=== PATIENT | female | born 1955 | race Caucasian/White ===

== ENCOUNTER 2017-01-05 11:18 | Day surgery (SDC) | payer BC, MEDICARE ==
[~2017-01-05 11:18] MED LIST: Buffered Lidocaine 0.9% SYRIN* 5 ML/SYR SYRINGE INTRADERM ONE
[2017-01-05] MEDS ORDERED: Dexamethasone IV* 8 MG in NS 0.9% 50 ML* 50 ML IVPB ONE (11:56)
[2017-01-05] MEDS ORDERED: Midazolam* 1 MG/ML 2 ML VIAL (2 MG) IV ONE (11:57)
[2017-01-05] MEDS ORDERED: Midazolam* 1 MG/ML 5 ML VIAL (5 MG) ONE ×2 (12:01→14:55)
[2017-01-05] MEDS ORDERED: Dexamethasone IV* 4 MG/ML 1 ML (4 MG) ONE (12:02)
[2017-01-05] MEDS ORDERED: fentaNYL* 50 MCG/ML 2 ML VIAL (100 MCG VIAL) ONE (14:55)
[2017-01-05] MEDS ORDERED: Propofol* 10 MG/ML 20 ML BTL IV PUSH ONE (15:25)
[2017-01-05] MEDS ORDERED: Lidocaine 2% PF * 5 ML VIAL ONE (15:25)
[2017-01-05 16:24] VITALS: BP 135/76
--- NOTE | 2017-01-05 19:28 | PRO ---
CC: Dr. Denisse Vieyra * DATE OF PROCEDURE: 01/05/17 [facility] PROCEDURE: Upper endoscopy with biopsies from the distal esophagus. MEDICINES USED: IV propofol administered through Anesthesiology. NARRATIVE: Ms. Montgomery is a 62-year-old woman with multiple medical problems including chronic pain, on narcotics, as well as reflux disease. She has been maintained on Protonix twice a day and had been doing well, although recently has had more reflux symptoms with regurgitation and occasional dysphagia. 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 For these reasons, an upper endoscopy is being carried out. DESCRIPTION OF PROCEDURE: After the procedure was discussed with the patient, risks and benefits were outlined, written consent was obtained, the patient was placed in the left lateral decubitus position and IV propofol was administered per Anesthesiology. A video adult flexible gastroscope was inserted orally and passed easily into the esophagus. The esophagus, stomach, and duodenum to the second to third portion were well visualized. The patient tolerated the procedure well and there were no immediate complications. FINDINGS: The proximal and mid body of the esophagus was normal. The distal esophagus was notable for a subtle projection of columnar appearing epithelium extending up less than a centimeter from the GE junction consistent with short segment Palmer's. Multiple biopsies were obtained. There was no erosion or stricture. The stomach was entered, and upon retroflexion, I do not appreciate a hiatal hernia. The gastric mucosa was normal without any ulceration or inflammatory change. The pylorus was normal and patent. The duodenal bulb was normal and the second to third portion of the duodenum was normal with a normal folding pattern. CONCLUSION: Short segment Palmer's, appearing endoscopically unchanged from previous endoscopy, otherwise normal upper endoscopy. Biopsies obtained as described above. RECOMMENDATIONS: The results were discussed with the patient. Certainly, there is no advanced change seen on today's exam. We may consider a trial of a different PPI just to see if she has a better response to that and I will discuss with her. Other lifestyle issues including weight reduction, not eating close to bedtime, and perhaps using less of narcotics were certainly by stalling gastric motility is contributing to the reflux, these were all recommended to the patient. Thank you very much, Dr. Vieyra, for involving me in the care of this pleasant woman. [id number]/[facility] #: [id number] [facility]
== END 2017-01-05 16:50 | disposition home or self-care (01) ==
LOC: OR 11:18
PROVIDERS: ATTEND Internal Medicine Gastroenterology
DX: K22.70 Barrett's esophagus without dysplasia (principal); K21.9 Gastro-esophageal reflux disease without esophagitis; E11.9 Type 2 diabetes mellitus without complications; I50.9 Heart failure, unspecified
CPT/HCPCS: 88305; J1100; J2250; J2704; J3010

== ENCOUNTER 2018-08-15 11:30 | Emergency (ER) | payer BC, MEDICARE ==
--- OUTSIDE RECORDS SUMMARY | 2018-08-15 12:32 | XMS REPORT | Continuity of Care Document ---
:1955 External Reference #:[id number] Author Name McgrathSarahi cui Care Team Providers Name Role Phone Izabel Rizvi M.D. Primary Care Physician Unavailable Payers Type Date Identification Numbers Payment Provider Subscriber Effective: 2009 Policy Number: [id number] Medicare Susan San PayID: [id number] [address] [place] [address] Effective: 2018 Policy Number: [facility] Susan San [id number] PayID: [id number] [address] [place] [address] Effective: 2012 Policy Number: [id number] [facility] Domenic San PayID: [id number] [address] [address] [place] [address] Advance Directives Type Date Description Status Comment Other Directive 05/02/2018 Health Care Proxy Current and Verified Problems Date Description Provider Status Onset: 02/25/2018 Diastolic heart failure Raphael Hendrix M.D.,FACP Active Onset: 11/14/2013 Benign essential hypertension Brittni Grey M.D. Active Onset: 11/14/2013 Dyspnea Brittni Grey M.D. Active Onset: 11/14/2013 Orthopnea Brittni Grey M.D. Active Onset: 12/17/2013 Mitral valve disorder Brittni Grey M.D. Active Note: mild-mod Onset: 01/27/2016 Obstructive sleep apnea syndrome Maxine Guadalupe MD Active Onset: 01/27/2016 Morbid obesity Maxine Guadalupe MD Active Onset: 03/13/2016 Hypersomnia with sleep apnea Maxine Guadalupe MD Active Onset: 02/25/2018 Adrenal hypofunction Raphael Hendrix, Active Latasha,FACP Onset: 03/21/2018 Thoracic and lumbosacral Raphael Hendrix, Active neuritis Latasha,FACP Onset: 11/14/2013 Congestive heart failure Brittni Grey M.D. 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 Denis. Tobacco Use Start: Unknown Patient has never smoked Smoking Status Reviewed: 07/31/18 Patient has never smoked Exercise Type/Frequency Exercises regularly uses exercise bike 5x week Allergies, Adverse Reactions, Alerts Date Description Reaction Status Severity Comments 10/24/2011 Bee Sting Active 10/24/2011 Diovan Active 10/24/2011 Morphine Active 11/14/2013 Effexor Anaphylaxis Active Severe 01/27/2016 Levofloxacin Active Mild joint pain 02/25/2018 Sulfa Antibiotics Active Moderate eye drops w/sulfa base caused blister Medications Medication Date Status Form Strength Qnty SIG Indications Ordering Provider Duloxetine HCL 07/[address] 20mg 60cap 1 by mouth G89.4 Part s twice a luis Rizvi MD Prazosin HCL 07/02 Active Capsules 1mg 90cap 3 tabs by F43.12 s mouth at Rizvi, bedtime Lidoderm 05/02 Active Patches 5% 1box apply to affected John Hendrix, area for M.DAnn,FACP 12 hours, remove for 12 hours and repeat as needed Clonazepam 05/02 Active Tablets 0.25mg 20tab 1 by mouth Dispers s every day Rizvi, as needed vertigo when away from home Meloxicam 03/21 Active Tablets 7.5mg take 1 tablet by John Hendrix, mouth M.D.,FACP twice daily as needed Lorazepam 03/19 Active Tablets 0.5mg 10tab 1 tablet F41.9 s every 6 D. Simeon, hours as Latasha,FACP needed for anxiety Turmeric Curcumin 03/06 Active Capsules 500mg 90cap take one s capsule/ta Leny blet daily M.D. by mouth B12 Fast Dissolve 03/06 Active Tablets 5000mcg 90tab sublingual G89.4 Dispers s daily Latasha Michele Provigil 03/13 Active Tablets 200mg 60tab 2 tabs by s mouth John Hendrix, every day M.D.,FACP Cpap Active Device 1unit nightly Unknown /0000 s with O2 Multivitamins Active Capsules 30cap 1 by mouth Unknown /0000 s every day Glucosamine Active Capsules 1500Com 1 by mouth Unknown Chondroitin 1500 /0000 every day Complex Medical Marijuana Active for pain Unknown / and sleep rx'd by Dr. Denis Potassium Active Tablets ER 20Meq when Jander, Chloride Bettina ER /0000 taking MD Denisse torsemide Torsemide Active Tablets 5mg once daily Jander, /0000 in the am MD Denisse Magnesium Active Tablets 550mg when Unknown Gluconate /0000 taking torsemide Probiotic Active Capsules 1 by mouth Unknown /0000 every day Bacitracin Zinc Active Ointment 500Unit/G apply Unknown /0000 M twice a day x 10 days to help with nose bleeds prn Flonase Allergy Active Suspension 50mcg/Act spray 1 Unknown Relief /0000 spray in each nostril twice daily prn Mucinex Active Tablets ER 600mg twice a 12HR day as needed Afrin Nasal Danielson Active Solution 0.05% 1 spray twice daily prn Leg Cramp Relief Active Tablets every 4 h prn Antacid Active Chewtabs 500mg prn Zofran Active Tablets 4mg 42tab take 1 by s mouth John Hendrix, twice a M.D.,FACP day as needed for nausea Systane Active Solution 0.4-0.3% apply twice daily as needed for dry eyes Spironolactone Active Tablets 25mg 30tab Take 1 s tablet by John Hendrix, mouth M.D.,FACP daily Lyrica 06/19 Hx Capsules 50mg 60cap 1 by mouth s twice a D. Simeon, - day [facility] 07/31 Oseltamivir 05/02 Hx Capsules 75mg 10cap 1 po bid s DAnn Hendrix, - [facility] 05/07 Macrobid 03/22 Hx Capsules 100mg 14cap 1 by mouth s twice a D. Simeon, - day M.D.,FACP 03/29 Macrobid 03/07 Hx Capsules 100mg 14cap 1 by mouth s twice a D. Simeon, - day [facility] 03/14 Lasix 03/06 Hx Tablets 20mg 1 by mouth every day Lorazepam 01/26 Hx Tablets 0.5mg 45tab 1-2 tabs G47.33 Maxine /2016 s tab by jackelin Guadalupe MD every night as needed Migraine Formula 01/22 Hx Tablets 250-250-6 prn 5mg Clonazepam 01/22 Hx Tablets 0.5mg 30tab 1 by mouth s twice a D. Simeon, - day as M.D.,FACP 07/27 needed for vertigo/an xiety Blanche Leg Cramp 01/22 Hx as directed Systane 01/22 Hx Solution 0.4-0.3% one drop in each eye twice daily plus as needed every 2 hours Tylenol PM Extra 01/22 Hx Tablets 500-25mg 1 tab by Unknown Strength mouth every 6 hours as needed Mucinex D 01/22 Hx Tablets ER 60-600mg 1 tab by 12HR mouth 2x day as needed [place] 04/15 Hx Tablets 5-325mg 30tab 1-2 by s mouth Anup, - every 4 to M.D. 01/22 6 hours as needed Nitroglycerin 11/14 Hx Patches 0.4mg/HR 30uni 1 patch to 786.02 Brittni 24HR ts chest wall [place], - in the M.D. 03/23 evenings, remove after 12 hours. Prednisone 00/ Hx Tablets 6mg 30tab as Unknown /0000 s directed Atenolol Hx Tablets 12.5 30tab 1 po qd Unknown /0000 s - 01/22 Hydromorphone HCL Hx Tablets 1.930 60tab one to two Unknown /0000 s 4 times a day as needed for pain Torsemide Hx Tablets 10mg 30tab 1 po qod Unknown /0000 s - 03/06 Magnesium-Oxide Hx Tablets 750-1000m 30tab 1 po qd Unknown /0000 g s - 10/30 Gabapentin Hx Capsules 400mg 1 tab qhs Unknown /0000 - 10/22 Protonix [address] 40mg patient no Unknown /0000 longer - taking 05/02 medication Provigil 00 Hx Tablets 400mg 1 po qd Unknown /0000 - 03/13 Skelaxin / Hx Tablets 800mg 20tab 1 po bid Unknown /0000 s prn - 01/22 Nasonex Hx Suspension 50mcg/Act 1unit 2 sprays Unknown /0000 s to each - nostril 03/23 once daily Gabapentin Hx Capsules 100mg 2 po qhs Unknown /0000 - 01/22 Magnesium /00 Hx Tablets 500mg 2 po qd Unknown Gluconate /0000 with - Torsemide 02/25 Systane / Hx prn Unknown /0000 - 01/22 Lorazepam 00/ Hx prn Unknown / - 01/22 Tizanidine HCL Hx 2mg prn - 01/22 Clonidine HCL Hx Tablets 1mg 28tab 1po qhs s Hydrochlorothiazi Hx Tablets 25mg 1 by mouth Unknown every day - 01/22 Prednisone Hx Tablets 5mg 1 by mouth every day - 02/25 Hydrocodone-Aceta Hx Tablets 5-325mg Tru, minophen / MD Tee - 02/25 Meloxicam Hx 7.5mg Patient Unknown / will be - taking 03/21 12 days Clonidine HCL Hx Tablets 0.1mg 1 by mouth qid as - needed 07/02 Nortriptyline HCL Hx Capsules 10mg take 2 capsules - by mouth 06/19 at bedtime rx'd by Dr. Denis Gabapentin Hx Capsules 300mg 1 by mouth three - times a 05/[address] Denis Medications Administered in Office Medication Date Status Form Strength Qnty SIG Indications Ordering Provider Genevieve Administered Injection Migue Carrion, 80MG 015 M.D. Immunizations CPT Code Status Date Vaccine Reaction Lot # [id number] Given 05/02/2018 Influenza Virus Vaccine, [id number] Quadrivalent, Split, Preservative Free [id number] Given 05/08/2016 Influenza Virus Vaccine, No reaction noted [id number] Quadrivalent, Split Virus, Im Use Vital Signs Date Vital Result Comment 07/31/2018 1:55pm Height 59 inches 4'11" Weight 220.00 lb Heart Rate 81 /min BP Systolic 130 mmHg BP Diastolic 84 mmHg Body Temperature 97.2 F O2 % BldC Oximetry 95 % BMI (Body Mass Index) 44.4 kg/m2 07/02/2018 3:06pm Height 59 inches 4'11" Heart Rate 78 /min BP Systolic Sitting 136 mmHg BP Diastolic Sitting 90 mmHg Body Temperature 98.8 F O2 % BldC Oximetry 97 % 06/19/2018 9:05am Height 59 inches 4'11" Weight 225.00 lb w/boots Heart Rate 103 /min BP Systolic Sitting 146 mmHg BP Diastolic Sitting 88 mmHg Body Temperature 97.0 F O2 % BldC Oximetry 97 % BMI (Body Mass Index) 45.4 kg/m2 05/02/2018 2:15pm Height 59 inches 4'11" Weight 217.25 lb Heart Rate 84 /min BP Systolic 150 mmHg BP Diastolic 100 mmHg BP Systolic Recheck 118 mmHg BP Diastolic Recheck 75 mmHg Body Temperature 98.4 F O2 % BldC Oximetry 97 % BMI (Body Mass Index) 43.9 kg/m2 03/21/2018 2:26pm Height 59 inches 4'11" Weight 217.00 lb Heart Rate 92 /min BP Systolic Sitting 126 mmHg BP Diastolic Sitting 80 mmHg Body Temperature 98.7 F O2 % BldC Oximetry 92 % BMI (Body Mass Index) 43.8 kg/m2 03/19/2018 11:13am Height 59 inches 4'11" Weight 215.00 lb Heart Rate 80 /min BP Systolic Sitting 116 mmHg BP Diastolic Sitting 86 mmHg Respiratory Rate 14 /min O2 % BldC Oximetry 97 % BMI (Body Mass Index) 43.4 kg/m2 03/06/2018 1:14pm Height 59 inches 4'11" Heart Rate 108 /min BP Systolic Sitting 149 mmHg BP Diastolic Sitting 75 mmHg Respiratory Rate 20 /min Body Temperature 97.7 F Pain Level 7 02/25/2018 2:28pm Height 59 inches 4'11" Weight 220.00 lb Heart Rate 59 /min BP Systolic Sitting 130 mmHg BP Diastolic Sitting 80 mmHg Body Temperature 98.1 F O2 % BldC Oximetry 98 % BMI (Body Mass Index) 44.4 kg/m2 01/02/2018 9:23am Height 59 inches 4'11" Weight 221.38 lb Heart Rate 76 /min BP Systolic Sitting 134 mmHg Lue large cuff BP Diastolic Sitting 82 mmHg Lue large cuff Respiratory Rate 16 /min O2 % BldC Oximetry 93 % BMI (Body Mass Index) 44.7 kg/m2 05/03/2017 9:48am Height 59 inches 4'11" Weight 216.00 lb Heart Rate 76 /min BP Systolic 118 mmHg BP Diastolic 74 mmHg Respiratory Rate 16 /min Body Temperature 97.6 F BMI (Body Mass Index) 43.6 kg/m2 05/08/2016 3:43pm Height 61 inches 5'1" Weight 208.38 lb Heart Rate 72 /min BP Systolic Sitting 130 mmHg BP Diastolic Sitting 60 mmHg Respiratory Rate 14 /min Body Temperature 97.6 F Pain Level 6 BMI (Body Mass Index) 39.4 kg/m2 03/13/2016 8:45am Height 61 inches 5'1" Weight 200.00 lb Heart Rate 65 /min BP Systolic 124 mmHg BP Diastolic 70 mmHg Respiratory Rate 14 /min O2 % BldC Oximetry 92 % BMI (Body Mass Index) 37.8 kg/m2 01/27/2016 10:00am Height 61 inches 5'1" Weight 200.00 lb Heart Rate 70 /min BP Systolic 128 mmHg BP Diastolic 84 mmHg Respiratory Rate 14 /min O2 % BldC Oximetry 93 % BMI (Body Mass Index) 37.8 kg/m2 Neck Circumference in inches 15 06/09/2015 2:55pm Height 61 inches 5'1" Weight 205.00 lb BMI (Body Mass Index) 38.7 kg/m2 04/29/2015 4:16pm Height 61 inches 5'1" Weight 205.00 lb Pain Level 7 BMI (Body Mass Index) 38.7 kg/m2 04/15/2015 3:48pm Height 61 inches 5'1" Weight 205.00 lb Respiratory Rate 18 /min BMI (Body Mass Index) 38.7 kg/m2 12/22/2014 2:33pm Height 61 inches 5'1" Weight 205.00 lb Heart Rate 62 /min BP Systolic 166 mmHg BP Diastolic 87 mmHg BMI (Body Mass Index) 38.7 kg/m2 12/17/2013 8:23am Height 59.5 inches 4'11.50" Weight 211.00 lb Heart Rate 56 /min BP Systolic Sitting 130 mmHg Ra large cuff BP Diastolic Sitting 74 mmHg Ra large cuff BP Systolic Standing 122 mmHg Ra BP Diastolic Standing 72 mmHg Ra Respiratory Rate 18 /min BMI (Body Mass Index) 41.9 kg/m2 11/14/2013 4:31pm Height 59.5 inches 4'11.50" Weight 212.00 lb Heart Rate 64 /min BP Systolic 126 mmHg Ra large cuff BP Diastolic 74 mmHg Ra large cuff BP Systolic Sitting 120 mmHg LA BP Diastolic Sitting 74 mmHg LA BP Systolic Standing 120 mmHg BP Diastolic Standing 72 mmHg Respiratory Rate 16 /min BMI (Body Mass Index) 42.1 kg/m2 10/24/2011 1:22pm Weight 222.00 lb Heart Rate 88 /min BP Systolic Sitting 126 mmHg BP Diastolic Sitting 88 mmHg Results Test Date Facility Test Result H/L Range Note Laboratory test 07/01/2018 [facility] Erythrocyte Sed 24 mm/Hr N 0-[address] [place] [address] [phone] C Reactive Protein 6.95 mg/L N <8.01 Urinalysis Profile 05/02/2018 [facility] Urine Color Yellow [address] [place], [place] [id number] [phone] Urine Appearance Clear Urine Specific [place] 1.010 N 1.010-1.030 Urine pH 5.0 N 5-9 Urine Urobilinogen Negative Negative Urine Ketones Negative Negative Urine Protein Negative Negative Urine Leukocytes Trace Abnormal Negative Urine Blood Negative Negative * * Abnormal Negative 2 Urine Nitrite Negative Negative Urine Bilirubin Negative Negative Urine Glucose Negative Negative Urine White Blood Cell Absent Absent Urine Red Blood Cell Absent Absent Urine Bacteria Absent Absent Urine Squamous Epithelial Cell Present Abnormal Absent Urine Culture And 05/02/2018 [facility] Urine Culture SEE RESULT [address] [place] [address] [phone] Urine Culture And 03/21/2018 [facility] Urine Culture SEE RESULT 4, [address] [place] [address] [phone] Ua Routine 03/21/2018 [facility] Ua Specific 1.015 [place] Ua PH 5 Ua Color dark yellow Ua Appera cloudy Ua WBC ++ Ua Protein trace Ua Glucose normal Ua Ketones neg Ua Bilirubin neg Ua Urobilinogen normal Ua Nitrite pos Ua Occult Blood trace Urinalysis Profile 03/06/2018 [facility] Urine Color Yellow [address] [place] [address] [phone] Urine Appearance Cloudy Urine Specific [place] 1.013 N 1.010-1.030 Urine pH 5.0 N 5-9 Urine Urobilinogen Negative Negative Urine Ketones Negative Negative Urine Protein Negative Negative Urine Leukocytes 3+ Abnormal Negative Urine Blood Negative Negative * * Abnormal Negative 6 Urine Nitrite Positive Abnormal Negative Urine Bilirubin Negative Negative Urine Glucose Negative Negative Urine White Blood Cell 3+(>20/hpf) Abnormal Absent Urine Red Blood Cell 3+(>10/hpf) Abnormal Absent Urine Bacteria 1+ Abnormal Absent Urine Squamous Epithelial Cell Present Abnormal Absent Urine Culture 03/06/2018 [facility] Urine SEE RESULT [address] Culture [place] [address] [phone] Laboratory test 03/06/2018 [facility] Vitamin B1 175 nmol/L 70-[address] ([place] [address] Blood) [phone] Laboratory test 03/06/2018 [facility] Erythrocyte 80 mm/Hr High 0-[address] [place] [address] [phone] Hepatitis Acute 03/06/2018 [facility] Hepatitis B Nonreactive Nonreactive Panel [address] [place] [address] Antigen [phone] Hepatitis B Core IgM Nonreactive Nonreactive Hepatitis C Antibody Nonreactive Nonreactive Hepatitis A AB IgM Nonreactive Nonreactive Laboratory test 03/04/2018 [facility] Methylmalonic 0.17 <= 0.[address] Acid Mma nmol/mL [place], [place] [id number] [phone] Protein 03/04/2018 [facility] Total 6.9 g/dL 6.3 - 7.[address] Protein(Pep) [place] [address] [phone] Albumin 3.4 g/dL 3.4-4.7 Alpha-1 Globulin 0.4 g/dL Abnormal 0.1-0.3 Alpha-2 Globulin 1.2 g/dL Abnormal 0.6-1.0 Beta Globulin 1.1 g/dL 0.7-1.2 Gamma Globulin 0.8 g/dL 0.6-1.6 Albumin/Globulin Ratio 0.98 Impression See Comment 10 Laboratory test 03/04/2018 [facility] TSH (Thyroid 0.70 mcIU/mL N 0.34-5.[address] Stim Horm) [place] [address] [phone] Lyme Disease Serology Negative Negative 11 Lyme Western 03/04/2018 [facility] Lyme Disease Negative Negative Blot [address] [place] [address] [phone] Lyme Disease IgG Bands Present No bands detecte <SEE NOTE> kDa 12 Lyme Disease IgM Ab WB Negative Negative Lyme Disease IgM Bands Present No bands detecte <SEE NOTE> kDa 13 Lyme Disease Interpretation See Comment 14 Vitamin B6 03/04/2018 [facility] Pyridoxal 5-Phosphate 25 g/L 5-[address] [place] [address] [phone] Pyridoxic Acid 8 g/L 3-30 16 Laboratory test 03/04/2018 [facility] Vitamin D 36.0 ng/mL N 20-[address] Total 25(Oh) [place] [address] [phone] Uric Acid 2.7 mg/dL N 2.3-6.6 Basic Metabolic 12/20/2017 [facility] Sodium 136 mmol/L Low 139-145 [address] [place] [address] [phone] Potassium 4.1 mmol/L N 3.5-5.0 Chloride 100 mmol/L Low 101-111 Co2 Carbon Dioxide 28 mmol/L N 22-32 Anion Gap 8 mmol/L N 2-11 Glucose 98 mg/dL N 70-100 Blood Urea Nitrogen 16 mg/dL N 6-24 Creatinine 0.70 mg/dL N 0.51-0.95 BUN/Creatinine Ratio 22.9 High 8-20 Calcium 8.7 mg/dL N 8.6-10.3 Egfr Non- 85.1 >60 Egfr 109.4 >60 18 Laboratory test 12/20/2017 [facility] Magnesium 2.1 mg/dL N 1.9-2.7 [address] [place] [address] [phone] Rheumatoid Factor < 10 IU/mL N <15 20 C Reactive Protein 5.90 mg/L High < 5.00 21 Vitamin B12 1362 pg/mL High 180-914 22 Erythrocyte Sed Rate 31 mm/Hr High 0-30 23 Urine Culture And 12/20/2017 [facility] Urine SEE RESULT [address] [place] [address] [phone] Laboratory test 12/20/2017 [facility] Lyme Disease Negative Negative [address] [place] [address] [phone] Anti Nuclear Antibody 0.2 U 26 Cyclic Citrullinated Pep Igg <15.6 U 27 Laboratory test 04/10/2016 [facility] Erythrocyte Sed 18 mm/Hr N 0-[address] [place] [address] [phone] Lyme Disease Serology Negative N Negative 28 CBC Auto Diff 04/10/2016 [facility] White Blood 3.9 10^3/uL N 3.5-10.[address] [place] [address] [phone] Red Blood Count 3.68 10^6/uL Low 4.0-5.4 Hemoglobin 12.0 g/dL N 12.0-16.0 Hematocrit 36 % N 35-47 Mean Corpuscular Volume 97 fL N 80-97 Mean Corpuscular Hemoglobin 33 pg High 27-31 Mean Corpuscular HGB Conc 34 g/dL N 31-36 Red Cell Distribution Width 13 % N 10.5-15 Platelet Count 267 10^3/uL N 150-450 Mean Platelet Volume 6 um3 Low 7.4-10.4 Abs Neutrophils 2.4 10^3/uL N 1.5-7.7 Abs Lymphocytes 1.0 10^3/uL N 1.0-4.8 Abs Monocytes 0.4 10^3/uL N 0-0.8 Abs Eosinophils 0 10^3/uL N 0-0.6 Abs Basophils 0 10^3/uL N 0-0.2 Abs Nucleated RBC 0 10^3/uL N Granulocyte % 63.0 % N 38-83 Lymphocyte % 25.5 % N 25-47 Monocyte % 9.7 % High 1-9 Eosinophil % 1.0 % N 0-6 Basophil % 0.8 % N 0-2 Nucleated Red Blood Cells % 0 N Laboratory test 04/10/2016 [facility] C Reactive 4.03 mg/L N < 5.00 29 finding 101 [facility] [place] [address] [phone] Ferritin 17.4 ng/mL N 11-307 Iron & Iron Binding 04/10/2016 [facility] Iron 58 g/dL N 50- [address] [place] [address] [phone] Unsaturated Iron Binding 271 g/dL N Total Iron Binding Capacity 329 g/dL N 250-450 % Iron Saturation 18 % N 15-55 Basic Metabolic Panel 04/10/2016 [facility] Sodium 134 mmol/L N 133-145 [address] [place] [address] [phone] Potassium 4.2 mmol/L N 3.5-5.0 Chloride 96 mmol/L Low 101-111 Co2 Carbon Dioxide 31 mmol/L N 22-32 Anion Gap 7 mmol/L N 2-11 Glucose 99 mg/dL N 70-100 Blood Urea Nitrogen 10 mg/dL N 6-24 Creatinine 0.62 mg/dL N 0.51-0.95 BUN/Creatinine Ratio 16.1 N 8-20 Calcium 8.9 mg/dL N 8.6-10.3 Egfr Non- 98.2 N >60 Egfr 126.3 N >60 30 1 [id number] *Ascorbic acid is present which may interfere with detection of blood. 3 SEE RESULT BELOW Name: SUSAN SAN : [address]: Rogelio Hendrix MD Acct: [id number] Unit: [id number] AGE: 63 Location: [facility] Re05/02/18 SEX: F Status: REG REF SPEC: [id number] ELLEN: 05/02/18-[address]: Raphael Hendrix MD REQ: [id number] RECD: 05/02/18 STATUS: COMP _ SOURCE: URINE SPDESC: ORDERED: Urine Culture COMMENTS: [id number] Urine Source: Random Procedure Result Reported Site Urine Culture Final 05/03/18- 1634 ML No growth of clinically significant organisms * ML - Main Lab . END OF REPORT DEPARTMENT OF PATHOLOGY, [address] [place] [address] Tr Gan M.D. Director [facility] # [id number] SEE RESULT BELOW Name: SUSAN SAN : [address]: Rogelio Hendrix MD Acct: [id number] Unit: [id number] AGE: 63 Location: [facility] Re03/21/18 SEX: F Status: REG REF SPEC: [id number] ELLEN: 03/21/18-[address] [facility] [address]: Raphael Hendrix MD REQ: [id number] RECD: 03/21/18 STATUS: COMP _ SOURCE: URINE SPDESC: ORDERED: Urine Culture COMMENTS: [id number] Urine Source: Random Procedure Result Reported Site Urine Culture Final 03/23/18- 0757 ML Organism 1 ESCHERICHIA COLI Stra[place] Count >100,000 (Many) CFU/ML 1. ESCHERICHIA COLI M.I.C. RX --------- ------ Ampicillin >=32 R Cefazolin <=4 S Cefepime <=1 S Ceftriaxone <=1 S Ciprofloxacin <=0.25 S Gentamicin <=1 S Levofloxacin <=0.12 S Meropenem <=0.25 S Nitrofurantoin <=16 S Tetracycline >=16 R Pipercillin/Tazobactam <=4 S Trimethoprim/Sulfamethoxazole <=20 S Amoxicillin/Clavulanic Acid 4 S Aztreonam <=1 S Contact the Microbiology Department for any additional antibiotic reporting. * ML - Main Lab . END OF REPORT DEPARTMENT OF PATHOLOGY, [address] [place] [address] Tr Gan M.D. Director [facility] # [id number] *Ascorbic acid is present which may interfere with detection of blood. 7 SEE RESULT BELOW Name: SUSAN ASN : [address]: Rogelio Hendrix MD Acct: [id number] Unit: [id number] AGE: 63 Location: LAB Re03/06/18 SEX: F Status: REG REF SPEC: [id number] ELLEN: 03/06/18-[address]: Raphael Hendrix MD REQ: [id number] RECD: 03/06/180159 STATUS: COMP _ SOURCE: URINE SPDESC: ORDERED: Urine Culture Procedure Result Reported Site Urine Culture Final 03/08/18- 846 ML Organism 1 ESCHERICHIA COLI [place] Count >100,000 (Many) CFU/ML 1. ESCHERICHIA COLI M.I.C. RX --------- ------ Ampicillin >=32 R Cefazolin <=4 S Cefepime <=1 S Ceftriaxone <=1 S Ciprofloxacin <=0.25 S Gentamicin <=1 S Levofloxacin <=0.12 S Meropenem <=0.25 S Nitrofurantoin <=16 S Tetracycline >=16 R Pipercillin/Tazobactam <=4 S Trimethoprim/Sulfamethoxazole <=20 S Amoxicillin/Clavulanic Acid 8 S Aztreonam <=1 S Contact the Microbiology Department for any additional antibiotic reporting. * ML - Main Lab . END OF REPORT DEPARTMENT OF PATHOLOGY, [address] [place] [address] Tr Gan M.D. Director [facility] # [id number] ADDITIONAL INFORMATION This test was developed and its performance characteristics determined by [facility] in a manner consistent with CLIA requirements. This test has not been cleared or approved by the U.S. Food and Drug Administration. Test Performed by: [facility] [place] [address] 9 ADDITIONAL INFORMATION This test was developed and its performance characteristics determined by [facility] in a manner consistent with CLIA requirements. This test has not been cleared or approved by the U.S. Food and Drug Administration. Test Performed by: [facility] [place] [address] 10 RESULT: No apparent monoclonal protein on serum electrophoresis. Test Performed by: [facility] [place] [address] 11 No evidence of antibodies to B. burgdorferi detected. False negative results may occur in recently infected patients (<=2 weeks) due to low or undetectable antibody levels to B. burgdorferi. If recent exposure is suspected, a second sample should be collected and tested in 2-4 weeks. Test Performed by: [facility] [place] [address] 12 No bands detected 13 No bands detected 14 Specific serologic response to B. burgdorferi infection is not detected, but cannot rule out early infection during which low or undetectable antibody levels to B. burgdorferi may be present. If clinically indicated, a new serum specimen should be submitted in 7-14 days. ADDITIONAL INFORMATION Per CDC criteria, the Lyme IgG Immunoblot is interpreted as positive if IgG-class antibodies are detected to >=5 B. burgdorferi proteins, and the Lyme IgM Immunoblot is interpreted as positive if IgM-class antibodies are detected to >=2 B. burgdorferi proteins. Immunoblot patterns not meeting these criteria should not be interpreted as positive. Epitopes from certain B. burgdorferi proteins (e.g., p41) are conserved across other bacteria, which may lead to the detection of IgM- and/or IgG-class antibodies on the Lyme disease immunoblots in patients without Lyme disease. Immunoblot should only be ordered on specimens that are positive or equivocal by a FDA-licensed Lyme disease antibody screening test (e.g., EIA). Results of the Lyme IgM immunoblot should not be considered in patients with >=30 days of symptoms. Test Performed by: [facility] - [address] [address] 15 ADDITIONAL INFORMATION This test was developed and its performance characteristics determined by [facility] in a manner consistent with CLIA requirements. This test has not been cleared or approved by the U.S. Food and Drug Administration. 16 ADDITIONAL INFORMATION This test was developed and its performance characteristics determined by [facility] in a manner consistent with CLIA requirements. This test has not been cleared or approved by the U.S. Food and Drug Administration. Test Performed by: [facility] - [address] [address] 17 [id number] 18 Because ethnic data is not always readily available, this report includes an eGFR for both -Americans and non- Americans. The National Kidney Disease Education Program (NKDEP) does not endorse the use of the MDRD equation for patients that are not between the ages of 18 and 70, are , have extremes of body size, muscle mass, or nutritional status, or are non- or non-. According to the National Kidney Foundation, irrespective of diagnosis, the stage of the disease is based on the level of kidney function: Stage Description GFR(mL/min/1.73 m(2)) 1 Kidney damage with normal or decreased GFR 90 2 Kidney damage with mild decrease in GFR 60-89 3 Moderate decrease in GFR 30-59 4 Severe decrease in GFR 15-29 5 Kidney failure <15 (or dialysis) 19 [id number] 20 [id number] 21 Acute inflammation: >10.00 22 Normal Range 180 to 914 Indeterminate Range 145 to 180 Deficient Range <145 23 [id number] 24 SEE RESULT BELOW Name: SUSAN SAN : [address]: Denisse Vieyra MD Acct: [id number] Unit: [id number] AGE: 62 Location: [facility] Re12/20/17 SEX: F Status: REG REF SPEC: [id number] ELLEN: 12/20/17-[address] [facility] [address]: Denisse Vieyra MD REQ: [id number] RECD: 12/20/17-160 STATUS: ELPIDIO COOK DR: Jordan Michele MD _ SOURCE: URINE SPDESC: ORDERED: Urine Culture COMMENTS: [id number] QUERIES: Urine Source: Random Procedure Result Reported Site Urine Culture Final 12/22/17- 0812 ML Organism 1 ESCHERICHIA COLI [place] Count >100,000 (Many) CFU/ML 1. ESCHERICHIA COLI M.I.C. RX --------- ------ Ampicillin <=2 S Cefazolin <=4 S Cefepime <=1 S Ceftriaxone <=1 S Ciprofloxacin <=0.25 S Gentamicin <=1 S Levofloxacin <=0.12 S Meropenem <=0.25 S Nitrofurantoin 32 S Tetracycline <=1 S Pipercillin/Tazobactam <=4 S Trimethoprim/Sulfamethoxazole >=320 R Amoxicillin/Clavulanic Acid 4 S Aztreonam <=1 S Contact the Microbiology Department for any additional antibiotic reporting. * ML - Main Lab . END OF REPORT DEPARTMENT OF PATHOLOGY, [address] [place] [address] Tr Gan M.D. Director [facility] # [id number] 25 No evidence of antibodies to B. burgdorferi detected. False negative results may occur in recently infected patients (<=2 weeks) due to low or undetectable antibody levels to B. burgdorferi. If recent exposure is suspected, a second sample should be collected and tested in 2-4 weeks. Test Performed by: [facility] - [facility] [address] [place] [address] 26 REFERENCE VALUE <=1.0 (Negative) Test Performed by: [facility] - [address] [address] 27 REFERENCE VALUE <20.0 (Negative) Test Performed by: [facility] - [address] [address] 28 Serologic response to B. burgdorferi infection is not detected, but cannot rule out early infection during which low or undetectable antibody levels to B. burgdorferi may be present. If clinically indicated, a new serum specimen should be submitted in 7-14 days. Test Performed by: [facility] - [address] [address] Custodial Aide: Garfield Cheney II, M.D., Ph.D. 29 Acute inflammation: >10.00 30 Because ethnic data is not always readily available, this report includes an eGFR for both -Americans and non- Americans. The National Kidney Disease Education Program (NKDEP) does not endorse the use of the MDRD equation for patients that are not between the ages of 18 and 70, are , have extremes of body size, muscle mass, or nutritional status, or are non- or non-. According to the National Kidney Foundation, irrespective of diagnosis, the stage of the disease is based on the level of kidney function: Stage Description GFR(mL/min/1.73 m(2)) 1 Kidney damage with normal or decreased GFR 90 2 Kidney damage with mild decrease in GFR 60-89 3 Moderate decrease in GFR 30-59 4 Severe decrease in GFR 15-29 5 Kidney failure <15 (or dialysis) Procedures Date Code Description Status 07/01/2018 [id number] Diabetic Retinal Eye Exam Completed 10/03/2017 [id number] Mammogram Completed 03/24/2015 00372 Short Leg Cast Completed 12/22/2014 01580 Inject/Drain Joint/Bursa Major W/O US Completed 12/04/2013 88477 ECHO Transthorasic Realtime 2D W Doppler & Color Flow Completed Hosp 11/14/2013 84177 EKG Tracing & Interpretation Completed 07/09/2013 [id number] Colonoscopy Completed 08/07/2012 23429 Polysomnography Sleep Staging 4+ Parameters W/Cpap Completed Encounters Type Date Location Provider Dx Diagnosis Office Visit 07/02/2018 [facility] Internal Izabel Rizvi MD G89.4 Chronic pain 3:00p Medicine - [address] F43.12 Post-traumatic stress disorder, chronic I10 Essential (primary) hypertension Office Visit 06/19/2018 [facility] Internal Raphael Lopez 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 Keyshawn Hendrix M.D.,FACP disorders w [address] radiculopathy, 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 N39.0 Urinary tract infection, site not specified Office Visit 05/02/2018 2:20p [facility] Lelia Lopez G60.8 Other hereditary Keyshawn Hendrix M.D.,FACP and idiopathic [address] neuropathies N39.0 Urinary tract infection, site not specified M51.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, lumbar region I10 Essential (primary) hypertension Z23 Encounter for immunization Office Visit 03/21/2018 2:20p [facility] Internal Raphael Lopez G60.8 Other hereditary Keyshawn Hendrix M.D.,FACP and idiopathic [address] neuropathies M51.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, lumbar region R30.0 Dysuria Office Visit 03/19/2018 11:00a Pulmonology And Maxine G47.33 Obstructive sleep Sleep Services Of MD Anayeli apnea (adult) [facility] (pediatric) E66.01 Morbid (severe) obesity due to excess calories F41.9 Anxiety disorder, unspecified Office Visit 03/06/2018 1:00p Rheumatology Jordan Michele G89.4 Chronic pain Services Of Ludni Pagan syndrome G60.8 Other hereditary and idiopathic neuropathies R20.8 Other disturbances of skin sensation M79.1 Myalgia Office Visit 02/25/2018 2:40p [facility] Lelia Lopez G89.4 Chronic pain Medicine - Talita Hendrix M.D.,FACP syndrome Rd G60.8 Other hereditary and idiopathic neuropathies M06.4 Inflammatory polyarthropathy Office Visit 01/02/2018 9:15a Pulmonology And Maxine G47.33 Obstructive sleep Sleep Services Of MD Anayeli apnea (adult) [facility] (pediatric) E66.09 Other obesity due to excess calories Office Visit 05/03/2017 Surgical Tee Schafer, L76.32 Postproc hematoma of 9:30a [facility] ELIZABETH MANUEL skin, subcu following other procedure Office Visit 05/08/2016 Rheumatology Jordan M06.4 Inflammatory 3:00p Services Of Ludin Michele M.D. polyarthropathy R20.8 Other disturbances of skin sensation R60.0 Localized edema M79.1 Myalgia Z23 Encounter for immunization Office Visit 03/13/2016 8:30a Pulmonology And Maxine G47.33 Obstructive sleep Sleep Services Of MD Anayeli apnea (adult) [facility] (pediatric) E66.01 Morbid (severe) obesity due to excess calories G47.10 Hypersomnia, unspecified Office Visit 01/27/2016 9:30a Pulmonology And Maxine G47.33 Obstructive sleep Sleep [facility] Of MD Anayeli apnea (adult) [facility] (pediatric) E66.01 Morbid (severe) obesity due to excess calories Office Visit 06/09/2015 2:40p [facility] [place] S92.354D Nondisp fx of 5th Services Of Latasha Hebert metatarsal bone, C.M.A. r ft, 7thD Office Visit 04/29/2015 3:50p [facility] [place] S92.354D Nondisp fx of 5th Services Of Latasha Hebert metatarsal bone, C.M.A. r ft, 7thD Office Visit 04/15/2015 3:30p Iris Cheatham M66.871 Spontaneous Services Of Latasha Hebert rupture of other C.M.A. tendons, right ankle and foot Office Visit 03/24/2015 4:10p Iris Cheatham 727.68 Ruptured Tendon Services Of Latasha Hebert Foot & Ankle C.M.A. Other 825.25 FX Other Bones Metatarsal Bone(S) Closed 825.25 FX Other Bones Metatarsal Bone(S) Closed 727.68 Ruptured Tendon Foot & Ankle Other Office Visit 12/22/2014 2:00p Orthopedic Services Migue Carrion, 727.3 Bursitis Other Of C.M.Jeremy Pagan 726.5 Enthesopathy Of Hip Region Office Visit 12/17/2013 8:00a [facility] Brittni Grey, 401.1 Hypertension Of [facility] M.D. Benign 786.05 Shortness Of Breath 786.02 Orthopnea 424.0 Mitral Valve Disorder 428.0 Congestive Heart Failure Unspecified Office Visit 11/14/2013 3:30p [facility] Brittni Grey, 428.0 Congestive Heart Of [facility] M.D. Failure Unspecified 401.1 Hypertension Benign 786.05 Shortness Of Breath 786.02 Orthopnea Office Visit 08/16/2012 Lai Cheatham 327.23 Obstructive Sleep 3:15p Disorder Center Latasha Hoyt Apnea Adult & Pediatric Office Visit 06/21/2012 Lai Cheatham 327.23 Obstructive Sleep 10:59a Disorder Center Latasha Hoyt Apnea Adult & Pediatric Office Visit 10/24/2011 ENT Services Of Denny Escoto, 381.81 Eustachian Tube 1:15p [facility] Visit 05/16/2010 Neurosurgery Nas Weaver 726.5 Enthesopathy Of 3:00p Services Of [facility] Latasha Salguero Hip Region Plan of Treatment Future Appointment(s):08/22/2018 3:00 pm - Alcides Jerome MD at [place] [facility] of [facility]08/29/2018 9:40 am - Izabel Rizvi MD at [facility] Internal Medicine - [address]/19/2018 10:45 am - Maxine Guadalupe MD at Pulmonology And Sleep Services Of [facility]07/31/2018 - Izabel Rizvi MDG89.4 Chronic pain syndromeReferral:Tee Le MD, AnesthesiologyFollow up:4 hljgjD28.12 Post-traumatic stress disorder, igskojtT78 Essential (primary) thtzdtktmklnE52.9 Endocrine disorder, unspecifiedReferral:Alcides Jerome MD, Endocrinology
[2018-08-15 12:35] VITALS: BP 148/89
--- NOTE | 2018-08-15 13:36 | ED ---
Respiratory - HPI Summary HPI Summary: 63-year-old female presents with cough for the past week. She admits to fevers. She has history of congestive heart failure. She admits to weight gain. She states she's had more edema in her legs. She states her cough is productive. She denies any chest pain. She admits to shortness of breath. States she's had to use her oxygen more frequently. She uses her CPAP at night. she denies any abdominal pain. She admits to sore throat from coughing. She admits to sinus congestion that is getting worse. She also admits to a headache. States she has a history of brain cancer. no history of asthma or COPD. - History of Current Complaint Chief Complaint: UCRespiratory Stated Complaint: COUGH,FEVER Time Seen by Provider: 08/15/18 13:25 Pain Intensity: 8 - Allergy/Home Medications Allergies/Adverse Reactions: Allergies Allergy/AdvReac Type Severity Reaction Status Date / Time valsartan [From Diovan] Allergy Severe respiratory Verified 08/15/18 12:36 distress venlafaxine [From Effexor] Allergy Severe respiratory Verified 08/15/18 12:36 distress amlodipine Allergy Coughing Verified 08/15/18 12:36 Gadolinium-Containing Allergy Severe Verified 08/15/18 12:36 Contrast Medi Nausea levofloxacin [From Levaquin] Allergy Muscle Verified 08/15/18 12:36 cramps morphine Allergy severe Verified 08/15/18 12:36 nausea sulfacetamide Allergy blisters Verified 08/15/18 12:36 in her eye bees Allergy Severe Swelling Uncoded 08/15/18 12:36 PMH/Surg Hx/FS Hx/Imm Hx Endocrine/Hematology History: Reports: Hx Diabetes - type1, Hx Thyroid Disease - small nodule on thyroid Cardiovascular History: Reports: Hx Congestive Heart Failure, Hx Hypertension - to maintain pressures. go up and down r/t pain and anxiety, Hx Valvular Heart Disease - small leak in heart Denies: Hx Pacemaker/ICD Respiratory History: Reports: Hx Pulmonary Edema - occassional, Hx Sleep Apnea Denies: Hx Asthma GI History: Reports: Hx Gastroesophageal Reflux Disease, Other GI Disorders - adrenal insufficiency r/t radiation damage History: Reports: Hx Kidney Infection - IN THE PAST- none recently Musculoskeletal History: Reports: Hx Arthritis Denies: Hx Rheumatoid Arthritis, Hx Osteoporosis, Other Musculoskeletal History Sensory History: Reports: Hx Contacts or Glasses - glasses, Hx Hearing Aid - WILL NOT WEAR Opthamlomology History: Reports: Hx Contacts or Glasses - glasses Neurological History: Reports: Hx Headaches, Hx Migraine - FREQUENTLY 2 PER MONTH Denies: Other Neuro Impairments/Disorders - NEURO DAMAGE FROM BRAIN TUMORS Psychiatric History: Reports: Hx Anxiety, Hx Depression Denies: Hx Panic Disorder - Cancer History Cancer Type, Location and Year: MENINGIOMA Hx Chemotherapy: No Hx Radiation Therapy: Yes - BRAIN - Surgical History Surgery Procedure, Year, and Place: 1988 MAXILLO-FACIAL; 1995 FX Rt ANKLE; 2001 HYSTERECTOMY; 2002 CHOLECYSTECTOMY; 2003 CRANIOTOMY; 2004 &2009 INTRATHECAL PAIN PUMP-SYNCHROMED II- (INFO IN "REPORTS" CLEARED FOR MRI TO 3T CLOSED BORE);* *PT GOING TO PAIN CLINIC IN [place] TO HAVE PUMP CHECK POST -MRI . 2012 PELVIC FLOOR SURGERY. 2015 hernia surgery [facility]. 2015 1 tooth implant CRANIOTOMY CLEARED BY DR RAMÍREZ-VIA EXTERNAL MRI DONE 09/03/11. BLADDER 2011, [place]. 2015 2 hernia repairs [facility]. [address] Joe Hx Anesthesia Reactions: Yes - needs to have anesthesia go low and slow Infectious Disease History: No Infectious Disease History: Denies: Traveled Outside the [place] in Last 30 Days - Social History Alcohol Use: Weekly Alcohol Amount: 3-4 drinks/wk Substance Use Type: Reports: None Substance Use Comment - Amount & Last Used: medical marijuana Hx Tobacco Use: No Smoking Status (MU): Never Smoked Tobacco Have You Smoked in the Last Year: No Review of Systems Positive: Fever Positive: Sore Throat, Nasal Discharge Negative: Chest Pain Positive: Shortness Of Breath, Cough All Other Systems Reviewed And Are Negative: Yes Physical Exam Triage Information Reviewed: Yes Vital Signs On Initial Exam: Initial Vitals Temp Pulse Resp BP Pulse Ox 98 F 94 17 148/89 100 08/15/18 12:32 08/15/18 12:32 08/15/18 12:32 08/15/18 12:32 08/15/18 12:32 Vital Signs Reviewed: Yes Appearance: Positive: Well-Appearing Skin: Positive: Warm, Dry Head/Face: Positive: Normal Head/Face Inspection Eyes: Positive: Normal, EOMI, YAJAIRA, Conjunctiva Clear ENT: Positive: Pharyngeal erythema, Nasal congestion, TMs normal, Sinus tenderness. Negative: Tonsillar swelling, Tonsillar exudate Neck: Positive: Supple, Nontender, No Lymphadenopathy Respiratory/Lung Sounds: Positive: Breath Sounds Present, Other - crackles Cardiovascular: Positive: Normal, RRR Abdomen Description: Positive: Nontender, Soft Bowel Sounds: Positive: Present Musculoskeletal: Positive: Edema Left - bilateral, Edema Right - bilateral, Other - good pulses Neurological: Positive: Normal Psychiatric: Positive: Normal Diagnostics - Vital Signs Vital Signs Temp Pulse Resp BP Pulse Ox 08/15/18 12:32 98 F 94 17 148/89 100 - Laboratory Lab Statement: Any lab studies that have been ordered have been reviewed, and results considered in the medical decision making process. Disposition - Course Course Of Treatment: 63-year-old female presents with cough for the past week. She admits to fevers. She has history of congestive heart failure. She admits to weight gain. She states she's had more edema in her legs. She states her cough is productive. She denies any chest pain. She admits to shortness of breath. States she's had to use her oxygen more frequently. She uses her CPAP at night. she denies any abdominal pain. She admits to sore throat from coughing. She admits to sinus congestion that is getting worse. She also admits to a headache. States she has a history of brain cancer. on exam phaynx erythematous. sinus congestion noted. lungs some crackles noted. patient decline chest xray and flu swap. requesting antibiotic. will start on azithromycin. discussed likely having a chf exacerbation in addition but patient declined further work up in ED or chest xray. will have increase torsemide and warned if continues to get worst to go to ED. 02 stat 100 at point so no resp distress at moment. patient understand and agrees with plan. - Differential Dx - Cardiopulmonary Differential Diagnoses - Cardiopulmonary: CHF, Influenza, Lower Resp Infection - Diagnoses Provider Diagnoses: Upper respiratory infection, CHF (congestive heart failure) Discharge - Sign-Out/Discharge Documenting (check all that apply): Patient Departure All imaging exams completed and their final reports reviewed: No Studies - Discharge Plan Condition: Good Disposition: HOME Prescriptions: Azithromycin TAB* [Zithromax TAB (Z-TYLER) 250 mg #6 tabs] 2 tab PO .TODAY, THEN 1 DAILY #1 tyler guaiFENesin/CODIEN 100MG-10MG* [Robitussin AC 100Mg-10Mg*] 5 ml PO Q6H PRN #100 ml MDD 20ml PRN Reason: Cough Patient Education Materials: Upper Respiratory Infection (ED) Referrals: Izabel Rizvi MD [Primary Care Provider] - Additional Instructions: Take cough medication 5ml (1 teaspoon) every 6 hours as needed cough Take azithromycin two tablets first day and one tablet second day Use saline in the nose for nasal congestion add an additional 10mg of torsemide at night Take Tylenol for pain every 6 hours follow up with primary within 5 days Return to ED if develop any worsening shortness of breath, chest pain, or any new or worsening symptoms - Billing Disposition and Condition Condition: GOOD Disposition: Home
== END 2018-08-15 13:43 | disposition home or self-care (01) ==
LOC: UCEAST 11:30
DX: J06.9 Acute upper respiratory infection, unspecified (principal); I50.9 Heart failure, unspecified; Z99.81 Dependence on supplemental oxygen; Z88.5 Allergy status to narcotic agent; Z88.2 Allergy status to sulfonamides; Z88.8 Allergy status to other drugs, medicaments and biological substances; Z88.1 Allergy status to other antibiotic agents; Z91.030 Bee allergy status
CPT/HCPCS: 99212; G0463

== ENCOUNTER 2018-08-29 10:55 | Emergency (ER) | payer BC, MEDICARE ==
[2018-08-29] MEDS ORDERED: methylPREDNISolone 125 MG* 2 ML VIAL IV ONE (11:05)
[2018-08-29] MEDS ORDERED: Albuterol/Ipratropium NEB.SOL* Albuterol 2.5 MG/Ipratropium 0.5 MG 3 ML INH ONE ×2 (11:05→12:49)
--- NOTE | 2018-08-29 11:10 | ED ---
Shortness of Breath - HPI Summary HPI Summary: This patient is a 63 year old female presenting to [facility] after being sent from her PCP for SOB. The patient states she has been SOB for over 10 days and has seen her PCP 3 times in this period. Along with the SOB she has had CP and RUBIO. She rates the pain 8/10 in severity and states it is worse with deep inspiration. She has no hx of COPD and does not smoke. She does have a hx of CHF and took torsemide this am. She is not experiencing fever or chills but she has had sweats at night. Pt has brain tumors and sleep apnea, she does not have a glioblastoma. She did radiation and surgery for this in the past. She sleeps in a recliner as she it unable to sleep flat. - History of Current Complaint Chief Complaint: EDChestWallPain Time Seen by Provider: 08/29/18 10:59 Hx Obtained From: Patient Onset/Duration: Lasting Days - 10, Still Present Timing: Constant Current Severity: Severe Dyspnea At: Rest Associated Signs & Symptoms: Chest Pain Unrelated to Cough, Diaphoresis - Allergy/Home Medications Allergies/Adverse Reactions: Allergies Allergy/AdvReac Type Severity Reaction Status Date / Time valsartan [From Diovan] Allergy Severe respiratory Verified 08/29/18 10:58 distress venlafaxine [From Effexor] Allergy Severe respiratory Verified 08/29/18 10:58 distress amlodipine Allergy Coughing Verified 08/29/18 10:58 Gadolinium-Containing Allergy Severe Verified 08/29/18 10:58 Contrast Medi Nausea levofloxacin [From Levaquin] Allergy Muscle Verified 08/29/18 10:58 cramps morphine Allergy severe Verified 08/29/18 10:58 nausea sulfacetamide Allergy blisters Verified 08/29/18 10:58 in her eye bees Allergy Severe Swelling Uncoded 08/29/18 10:58 Home Medications: Home Medications Acetaminophen/Diphenhydramine [Tylenol Pm Ex-Strength Caplet] 1 tab PO BEDTIME PRN 08/29/18 [History Confirmed 08/29/18] Ascorbic Acid TAB* [Vitamin C TAB*] 1,000 mg PO DAILY 08/29/18 [History Confirmed 08/29/18] Aspirin/Acetaminophen/Caffeine [Headache Relief Tablet] 1 tab PO Q6HR PRN [History Confirmed 08/29/18] Bacitracin OINTMENT* 1 applic TOPICAL DAILY 08/29/18 [History Confirmed 08/29/18 ] Benzonatate CAP* [Tessalon 100 MG CAP*] 100 mg PO TID PRN 08/29/18 [History Confirmed 08/29/18] Calcium Carb/D3/Magnesium/Zinc [Calcium/Magnesium/Zinc] 1 tab PO DAILY 08/29/18 [History Confirmed 08/29/18] Calcium Carb/Magnesium Hydrox [Antacid Extra Strength] 1 chw PO TID PRN [History Confirmed 08/29/18] Cranberry Fruit Extract [Cranberry] 1,800 mg PO DAILY 08/29/18 [History Confirmed 08/29/18] Lactobacillus Acidophilus [Probiotic Acidophilus] 20 mg PO DAILY 08/29/18 [ History Confirmed 08/29/18] Magnesium Gluconate 550 mg PO DAILY 08/29/18 [History Confirmed 08/29/18] Meloxicam(NF) [Mobic(NF)] 7.5 mg PO DAILY PRN 08/29/18 [History Confirmed ] Menthol [Sundar Cool Therapy] 1 gm TOPICAL BID PRN 08/29/18 [History Confirmed 08/29/18] Modafinil [Provigil] 400 mg PO QAM 08/29/18 [History Confirmed 08/29/18] Multivitamins/Minerals TAB* [Theragran/minerals TAB*] 1 tab PO DAILY 08/29/18 [ History Confirmed 08/29/18] Ondansetron TAB* [Zofran 4 MG Tab*] 4 - 8 mg PO Q6H PRN 08/29/18 [History Confirmed 08/29/18] Oxymetazoline 0.05% NASAL SPR* [Afrin 0.05% NASAL SPRAY*] 1 spray BOTH NARES BID PRN 08/29/18 [History Confirmed 08/29/18] Peg/Prop Gly/Potas Chl/Sod Chl [Rhinase Lubricating Nasal Mist] 30 ml BOTH NARES BID PRN 08/29/18 [History Confirmed 08/29/18] Potassium Gluconate [Potassium] 600 mg PO DAILY 08/29/18 [History Confirmed 02/07] Prazosin CAP* [Minipress CAP*] 3 mg PO BEDTIME 08/29/18 [History Confirmed 08/29] Propylene Glycol/Peg 400/Pf [Systane 0.3-0.4% Eye Drops] 1 drop BOTH EYES TID PRN 08/29/18 [History Confirmed 08/29/18] Torsemide TAB* [Demadex*] 5 mg PO QAM 08/29/18 [History Confirmed 08/29/18] Turmeric 400 mg PO TID 08/29/18 [History Confirmed 08/29/18] predniSONE TAB* [Deltasone 10 MG TAB*] 40 mg PO DAILY 08/29/18 [History Confirmed 08/29/18] PMH/Surg Hx/FS Hx/Imm Hx Endocrine/Hematology History: Reports: Hx Diabetes - type1, Hx Thyroid Disease - small nodule on thyroid Cardiovascular History: Reports: Hx Congestive Heart Failure, Hx Hypertension - to maintain pressures. go up and down r/t pain and anxiety, Hx Valvular Heart Disease - small leak in heart Denies: Hx Pacemaker/ICD Respiratory History: Reports: Hx Pulmonary Edema - occassional, Hx Sleep Apnea Denies: Hx Asthma GI History: Reports: Hx Gastroesophageal Reflux Disease, Other GI Disorders - adrenal insufficiency r/t radiation damage History: Reports: Hx Kidney Infection - IN THE PAST- none recently Musculoskeletal History: Reports: Hx Arthritis Denies: Hx Rheumatoid Arthritis, Hx Osteoporosis, Other Musculoskeletal History Sensory History: Reports: Hx Contacts or Glasses - glasses, Hx Hearing Aid - WILL NOT WEAR Opthamlomology History: Reports: Hx Contacts or Glasses - glasses Neurological History: Reports: Hx Headaches, Hx Migraine - FREQUENTLY 2 PER MONTH Denies: Other Neuro Impairments/Disorders - NEURO DAMAGE FROM BRAIN TUMORS Psychiatric History: Reports: Hx Anxiety, Hx Depression Denies: Hx Panic Disorder - Cancer History Cancer Type, Location and Year: [place]INGI[place] Hx Chemotherapy: No Hx Radiation Therapy: Yes - BRAIN - Surgical History Surgery Procedure, Year, and Place: 1988 MAXILLO-FACIAL; 1995 FX Rt ANKLE; 2001 HYSTERECTOMY; 2002 CHOLECYSTECTOMY; 2003 CRANIOTOMY; 2004 &2009 INTRATHECAL PAIN PUMP-SYNCHROMED II- (INFO IN "REPORTS" CLEARED FOR MRI TO 3T CLOSED BORE);* *PT GOING TO PAIN CLINIC IN [place] TO HAVE PUMP CHECK POST -MRI . 2011 PELVIC FLOOR SURGERY. 2015 hernia surgery [facility]. 2015 1 tooth implant CRANIOTOMY CLEARED BY DR RAMÍREZ-VIA EXTERNAL MRI DONE 09/03/11. BLADDER 2011, [place]. 2015 2 hernia repairs [facility]. [address] Joe Hx Anesthesia Reactions: Yes - needs to have anesthesia go low and slow Infectious Disease History: No Infectious Disease History: Denies: Traveled Outside the [place] in Last 30 Days - Family History Known Family History: Positive: Hypertension Negative: Renal Disease, Seizure Disorder - Social History Alcohol Use: Weekly Alcohol Amount: 3-4 drinks/wk Substance Use Type: Reports: None Substance Use Comment - Amount & Last Used: medical marijuana Hx Tobacco Use: No Smoking Status (MU): Never Smoked Tobacco Have You Smoked in the Last Year: No Review of Systems Positive: Skin Diaphoresis. Negative: Fever, Chills Positive: Chest Pain Positive: Shortness Of Breath, Other - RUBIO All Other Systems Reviewed And Are Negative: Yes Physical Exam - Summary Physical Exam Summary: VITAL SIGNS: Reviewed. GENERAL: Patient is a well-developed and nourished female who is lying comfortable in the stretcher. Patient is not in any acute respiratory distress. HEAD AND FACE: No signs of trauma. No ecchymosis, hematomas or skull depressions. No sinus tenderness. EYES: PERRLA, EOMI x 2, No injected conjunctiva, no nystagmus. EARS: Hearing grossly intact. Ear canals and tympanic membranes are within normal limits. MOUTH: Oropharynx within normal limits. NECK: Supple, trachea is midline, no adenopathy, no JVD, no carotid bruit, no c- spine tenderness, neck with full ROM. CHEST: Symmetric, no tenderness at palpation LUNGS: crackles diffusely CVS: Regular rate and rhythm, S1 and S2 present, no murmurs or gallops appreciated. ABDOMEN: Soft, non-tender. No signs of distention. No rebound no guarding, and no masses palpated. Bowel sounds are normal. EXTREMITIES: FROM in all major joints, mild LE edema NEURO: Alert and oriented x 3. No acute neurological deficits. Speech is normal and follows commands. SKIN: Dry and warm Triage Information Reviewed: Yes Vital Signs On Initial Exam: Initial Vitals Temp Pulse Resp BP Pulse Ox 97.6 F 76 24 165/93 98 08/29/18 10:57 08/29/18 10:57 08/29/18 10:57 08/29/18 10:57 08/29/18 10:57 Vital Signs Reviewed: Yes Diagnostics - Vital Signs Vital Signs Temp Pulse Resp BP Pulse Ox 08/29/18 11:09 24 08/29/18 10:57 97.6 F 76 24 165/93 98 - Laboratory Result Diagrams: 08/29/18 10:33 08/29/18 10:32 Lab Statement: Any lab studies that have been ordered have been reviewed, and results considered in the medical decision making process. - Radiology CXR Radiology Interpretation Completed By: Radiologist Summary of Radiographic Findings: no active cardiopulmonary disease. ED physician has reviewed this report. - EKG 1110 Cardiac Rate: NL EKG Rhythm: Sinus Rhythm - at 73 BPM Summary of EKG Findings: no ST elevations Course/Dx - Course Assessment/Plan: Blood work shows a wbcs of 13.3, hemoglobin of 13 hematocrit 40, platelets 358. Glucose of 114, AST 11, C-reactive protein is a 0.75. ABG shows a pH of 7.61, PCO2 of 27, PO2 is 161, O2 sat is 99.3 and axis bases 6.5. D-dimer is less than 200 therefore no suspicion for a PE. Chest x-ray impression: No active pulmonary pulmonary disease. In the ED course the patient was given DuoNebs and Solu-Medrol. After these medications the patient reports that she is feeling better. At this point I discussed the physical exam and findings with Dr. Cortez from pulmonology and she reports that she has seen this patient in the past. The patient has history of chronic bronchitis but no COPD. She also has history of obstructive sleep apnea. Reviewed the results, presentation and Dr. Cortez recommends for the patient to be discharged home with follow-up with the primary care physician and at her office. I discussed the findings and test results with the patient and the patients son and they agree with the plan. At this point the patient is hemodynamically stable alert oriented 3. - Diagnoses Differential Diagnosis/HQI/PQRI: Positive: Asthma, Bronchitis, CHF, Chest Wall Pain, COPD Exacerbation, ND, Pneumonia Provider Diagnoses: Anxiety, Dyspnea - Physician Notifications Discussed Care of Patient With: Maxine Guadalupe Time Discussed With Above Provider: 14:06 Instructed by Provider To: Other - I discussed the case with Dr Guadalupe and they state the patient has an extensive mental health history. This could be contributing to her currently complaint. Discharge - Sign-Out/Discharge Documenting (check all that apply): Patient Departure Patient Received Moderate/Deep Sedation with Procedure: No - Discharge Plan Condition: Stable Disposition: HOME Patient Education Materials: Dyspnea (ED), Anxiety (ED) Referrals: Izabel Rizvi MD [Primary Care Provider] - Additional Instructions: Follow up with your primary care physician in 1-3 days. RETURN TO THE EMERGENCY DEPARTMENT FOR CHANGING OR WORSENING SYMPTOMS. - Billing Disposition and Condition Condition: STABLE Disposition: Home - Attestation Statements Document Initiated by Jaisonibe: Yes Documenting Scribe: Edgar Whitehead Provider For Whom Scribe is Documenting (Include Credential): Bruno Camarillo MD Scribe Attestation: Edgar Chandra , scribed for Bruno Camarillo MD on 08/30/18 at 2047. Scribe Documentation Reviewed: Yes Provider Attestation: The documentation as recorded by the Edgar de la cruz accurately reflects the service I personally performed and the decisions made by me, Bruno Camarillo MD Status of Scribe Document: Viewed
--- OUTSIDE RECORDS SUMMARY | 2018-08-29 11:27 | XMS REPORT | Continuity of Care Document ---
:1955 External Reference #:[id number] Author Name Deedee Angel Care Team Providers Name Role Phone Izabel Rizvi M.D. 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[facility] 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, 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 Status Not Currently Working retired Tobacco [...] Patient has never smoked Smoking Status Reviewed: 08/22/18 Patient has never smoked Exercise Type/Frequency Exercises regularly exercise bike at home UNKNOWN Has service dog Allergies, Adverse Reactions, Alerts Date Description Reaction Status Severity Comments 10/24/2011 Bee Sting Active 10/24/2011 Diovan Active breathing issues 10/24/2011 Morphine Active nausea 11/14/2013 Effexor Anaphylaxis Active Severe 01/27/2016 Levofloxacin Active Mild joint pain 02/25/2018 Sulfa Antibiotics Active Moderate eye drops w/sulfa base caused blister Medications Medication Date Status Form Strength Qnty SIG Indications Ordering Provider Macimorelin 08/22 Active E23.0 Mcgrath MD Queenie Prednisone 08/19 Active Tablets 10mg 84tab take 6 J20.9 s tablets by jackelin Rizvi MD daily for 4 days, reduce by 1 tab every 4 days until finished Ipratropium 08/19 Active Solution 0.5-2.5(3 90ml one vial J20.9 [place]/Albuterol )mg/3ML via neb Rizvi, Sulfate every 4-6 MD hours for wheezing/c oughing Duloxetine HCL 07/[address] 20mg 60cap 1 by mouth G89.4 Part s twice a Rizvi, day Prazosin HCL 07/02 Active Capsules 1mg 90cap 3 tabs by F43.12 s mouth at Rizvi, bedtime Lidoderm 05/02 Active Patches 5% 1box apply to affected John Hendrix, area for M.D.,FACP 12 hours, remove for 12 hours and repeat as needed Clonazepam 05/02 Active Tablets 0.25mg 20tab 1 by mouth Dispers s every day Rizvi, as needed vertigo when away from home Meloxicam 03/21 Active Tablets 7.5mg take 1 tablet by John Hendrix mouth M.D.,FACP twice daily as needed Lorazepam 03/19 Active Tablets 0.5mg 10tab 1 tablet F41.9 s every 6 D. Simeon, hours as Sheron.DAnn,FACP needed for anxiety Turmeric Curcumin 03/06 Active Capsules 500mg 90cap take one s capsule/ta elton Michele daily M.D. by mouth B12 Fast Dissolve 03/06 Active Tablets 5000mcg 90tab sublingual G89.4 Dispers s daily Latasha Michele Provigil 03/13 Active Tablets 200mg 60tab 2 tabs by s mouth Rizvi, every day Cpap Active Device 1unit nightly Unknown /0000 s with O2 Multivitamins 00 Active Capsules 30cap 1 by mouth Unknown /0000 s every day Glucosamine 00 Active Capsules 1500Com 1 by mouth Unknown Chondroitin 1500 /0000 every day Complex Medical Marijuana 00 Active for pain Unknown /0000 and sleep rx'd by Dr. Denis Potassium Active Tablets ER 20Meq when Jander, Chloride Bettina ER / taking MD Denisse torsemide Torsemide Active Tablets 5mg 30tab once daily s in the am MD Belkys Magnesium Active Tablets 550mg when Unknown Gluconate taking torsemide Probiotic Active Capsules 1 by mouth every day Bacitracin Zinc Active Ointment 500Unit/G apply M twice a day x 10 days to help with nose bleeds prn Flonase Allergy Active Suspension 50mcg/Act spray 1 Unknown Relief spray in each nostril twice daily prn Mucinex Active Tablets ER 600mg twice a 12HR day as needed Afrin Nasal [place] Active Solution 0.05% 1 spray twice daily prn Leg Cramp Relief Active Tablets every 4 h prn Antacid Active Chewtabs 500mg prn Zofran Active Tablets 4mg 42tab take 1 by s mouth John Hendrix, twice a M.DAnn,FACP day as needed for nausea Systane Active Solution 0.4-0.3% apply twice daily as needed for dry eyes Spironolactone Active Tablets 25mg 30tab take 1 s tablet by jackelin Rizvi MD daily Cheratussin ac Active Solution 100-10mg/ 5-10ml 5ML every 6 hours as needed cough. Lyrica 06/19 Hx Capsules 50mg 60cap 1 by mouth s twice a John Hendrix, - day M.DAnn,FACP 07/31 Oseltamivir 05/02 Hx Capsules 75mg 10cap 1 po bid Raphael s John Hendrix - Latasha,FACP 05/07 Macrobid 03/22 Hx Capsules 100mg 14cap 1 by mouth s twice a John Hendrix, - day M.John,FACP 03/29 Macrobid 03/07 Hx Capsules 100mg 14cap 1 by mouth s twice a John Hendrix, - day M.John,FACP 03/14 Lasix 03/06 Hx Tablets 20mg 1 by mouth every day Lorazepam 01/26 Hx Tablets 0.5mg 45tab 1-2 tabs G47.33 Maxine /2016 s tab by jackelin Guadalupe MD every night as needed Migraine Formula 01/22 Hx Tablets 250-250-6 prn 5mg Clonazepam 01/22 Hx Tablets 0.5mg 30tab 1 by mouth Raphael s twice a D. Simeon, - day as M.D.,FACP 07/27 needed for vertigo/an xiety Blanche Leg Cramp 01/22 Hx as directed Systane 01/22 Hx Solution 0.4-0.3% one drop in each eye twice daily plus as needed every 2 hours Tylenol PM Extra 01/22 Hx Tablets 500-25mg 1 tab by Unknown mouth every 6 hours as needed Mucinex D 01/22 Hx Tablets ER 60-600mg 1 tab by 12HR mouth 2x day as needed [place] 04/15 Hx Tablets 5-325mg 30tab 1-2 by Linden s mouth Anup, - every 4 to M.D. 01/22 6 hours as needed Nitroglycerin 11/14 Hx Patches 0.4mg/HR 30uni 1 patch to 786.02 Brittni 24HR ts chest wall [place], - in the M.D. 03/23 evenings, remove after 12 hours. Prednisone 00 Hx Tablets 6mg 30tab as Unknown /0000 s directed Atenolol Hx Tablets 12.5 30tab 1 po qd Unknown / s - 01/22 Hydromorphone HCL Hx Tablets 1.930 60tab one to two Unknown /0000 s 4 times a day as needed for pain Torsemide Hx Tablets 10mg 30tab 1 po qod Unknown /0000 s - 03/06 Magnesium-Oxide Hx Tablets 750-1000m 30tab 1 po qd Unknown /0000 g s - 10/30 Gabapentin Hx Capsules 400mg 1 tab qhs Unknown /0000 - 10/[address] 40mg patient no Unknown /0000 longer - taking 05/02 medication Provigil Hx Tablets 400mg 1 po qd Unknown /0000 - 03/13 Skelaxin Hx Tablets 800mg 20tab 1 po bid Unknown /0000 s prn - 01/22 Nasonex Hx Suspension 50mcg/Act 1unit 2 sprays Unknown /0000 s to each - nostril 03/23 once daily /2014 Gabapentin Hx Capsules 100mg 2 po qhs Unknown /0000 - 01/22 Magnesium Hx Tablets 500mg 2 po qd Unknown Gluconate /0000 with - Torsemide 02/25 Systane Hx prn Unknown /0000 - 01/22 Lorazepam Hx prn Unknown /0000 - 01/22 Tizanidine HCL Hx 2mg prn Unknown /0000 - 01/22 Clonidine HCL Hx Tablets 1mg 28tab 1po qhs Unknown /0000 s Hydrochlorothiazi Hx Tablets 25mg 1 by mouth Unknown de /0000 every day - 01/22 Prednisone 00 Hx Tablets 5mg 1 by mouth Unknown /0000 every day - 02/25 Hydrocodone-Aceta Hx Tablets 5-325mg kylie Ottophen /0000 MD Tee - 02/25 Meloxicam Hx 7.5mg Patient Unknown /0000 will be - taking 03/21day 12 days Clonidine HCL 00 Hx Tablets 0.1mg 1 by mouth Unknown /0000 qid as - needed 07/02 Nortriptyline HCL Hx Capsules 10mg take 2 Unknown /0000 capsules - by mouth 06/19 at bedtime rx'd by Dr. Denis Gabapentin Hx Capsules 300mg 1 by mouth Unknown /0000 three - times a 05/[address] Denis Medications Administered in Office Medication Date Status Form Strength Qnty SIG Indications Ordering Provider Daniomedmike Administered Injection dejan HannahMurali, 80MG 015 M.D. Immunizations CPT Code Status Date Vaccine Reaction Lot # [id number] Given 05/02/2018 Influenza Virus Vaccine, [id number] Quadrivalent, Split, Preservative Free [id number] Given 05/08/2016 Influ Virus Vaccine, No reaction noted [id number] Quadrivalent, Split Virus, Im Fluzone not PF Vital Signs Date Vital Result Comment 08/22/2018 2:44pm Height 59 inches 4'11" Weight 223.00 lb w/shoes Heart Rate 83 /min BP Systolic Sitting 158 mmHg BP Diastolic Sitting 94 mmHg BMI (Body Mass Index) 45.0 kg/m2 08/19/2018 4:26pm Height 59 inches 4'11" Weight 213.00 lb with shoes Heart Rate 79 /min BP Systolic 143 mmHg BP Diastolic 79 mmHg Body Temperature 99.1 F O2 % BldC Oximetry 98 % BMI (Body Mass Index) 43.0 kg/m2 07/31/2018 1:55pm Height 59 inches 4'11" Weight [...] Test Result H/L Range Note Laboratory test 08/20/2018 [facility] C Difficile PCR SEE RESULT [address] [place] [address] [phone] Laboratory test 07/01/2018 [facility] Erythrocyte Sed 24 mm/Hr N 0-[address] [place] [address] [phone] C Reactive Protein 6.95 mg/L N <8.01 Urinalysis Profile 05/02/2018 [facility] Urine Color Yellow [address] [place] [address] [phone] Urine Appearance Clear Urine Specific [place] 1.010 N 1.010-1.030 Urine pH 5.0 N 5-9 Urine Urobilinogen Negative Negative Urine Ketones Negative Negative Urine Protein Negative Negative Urine Leukocytes Trace Abnormal Negative Urine Blood Negative Negative * * Abnormal Negative 3 Urine Nitrite Negative Negative Urine Bilirubin Negative Negative Urine Glucose Negative Negative Urine White Blood Cell Absent Absent Urine Red Blood Cell Absent Absent Urine Bacteria Absent Absent Urine Squamous Epithelial Cell Present Abnormal Absent Urine Culture And 05/02/2018 [facility] Urine Culture SEE RESULT [address] [place], [place] [id number] [phone] Urine Culture And 03/21/2018 [facility] Urine Culture SEE RESULT 5, [address] [place] [address] [phone] Ua Routine 03/21/2018 [employer] In House Ua Specific 1.015 [place] Ua PH 5 Ua Color dark yellow Ua Appera cloudy Ua WBC ++ Ua Protein trace Ua Glucose normal Ua Ketones neg Ua Bilirubin neg Ua Urobilinogen normal Ua Nitrite pos Ua Occult Blood trace Urine Culture And 03/06/2018 [facility] Urine Culture SEE RESULT [address] [place] [address] [phone] Urinalysis Profile 03/06/2018 [facility] Urine Color Yellow [address] [place] [address] [phone] Urine Appearance Cloudy Urine Specific [place] 1.013 N 1.010-1.030 Urine pH 5.0 N 5-9 Urine Urobilinogen Negative Negative Urine Ketones Negative Negative Urine Protein Negative Negative Urine Leukocytes 3+ Abnormal Negative Urine Blood Negative Negative * * Abnormal Negative 8 Urine Nitrite Positive Abnormal Negative Urine Bilirubin Negative Negative Urine Glucose Negative Negative Urine White Blood Cell 3+(>20/hpf) Abnormal Absent Urine Red Blood Cell 3+(>10/hpf) Abnormal Absent Urine Bacteria 1+ Abnormal Absent Urine Squamous Epithelial Cell Present Abnormal Absent Laboratory 03/06/2018 [facility] Vitamin B1 175 nmol/L 70- 180 [address] (Whole Blood) [place], [place] [id number] [phone] Laboratory 03/06/2018 [facility] Erythrocyte 80 mm/Hr High 0- [address] [place] [address] [phone] Hepatitis 03/06/2018 [facility] Hepatitis B Nonreactive Nonreactive Acute Panel [address] [place] [address] Antigen [phone] Hepatitis B Core IgM Nonreactive Nonreactive Hepatitis C Antibody Nonreactive Nonreactive Hepatitis A AB IgM Nonreactive Nonreactive Laboratory test 03/04/2018 [facility] Methylmalonic 0.17 <= 0.40 10 finding 101 [facility] Acid Mma nmol/mL [place], [place] [address] [phone] Protein 03/04/2018 [facility] Total 6.9 g/dL 6.3 - Electrophoresis [facility] Protein(Pep) 7.9 [place], [place] [address] [phone] Albumin 3.4 g/dL 3.4-4.7 Alpha-1 Globulin 0.4 g/dL Abnormal 0.1-0.3 Alpha-2 Globulin 1.2 g/dL Abnormal 0.6-1.0 Beta Globulin 1.1 g/dL 0.7-1.2 Gamma Globulin 0.8 g/dL 0.6-1.6 Albumin/Globulin Ratio 0.98 Impression See Comment 11 Laboratory test 03/04/2018 [facility] TSH (Thyroid 0.70 mcIU/mL N 0.34-5.60 finding 101 [facility] Stim [place]) [place] [address] [phone] Lyme Disease Serology Negative Negative 12 Lyme Western 03/04/2018 [facility] Lyme Disease Negative Negative Blot 101 [facility] [place] [place] [address] [phone] Lyme Disease IgG Bands Present No bands detecte <SEE NOTE> kDa 13 Lyme Disease IgM Ab WB Negative Negative Lyme Disease IgM Bands Present No bands detecte <SEE NOTE> kDa 14 Lyme Disease Interpretation See Comment 15 Vitamin B6 03/04/2018 [facility] Pyridoxal 5-Phosphate 25 g/L 5-50 16 [address] [place] [address] [phone] Pyridoxic Acid 8 g/L 3-30 17 Laboratory test 03/04/2018 [facility] Vitamin D 36.0 ng/mL N 20-50 finding [address] [facility] Total 25(Oh) [place] [address] [phone] Uric Acid 2.7 mg/dL N 2.3-6.6 Basic Metabolic 12/20/2017 [facility] Sodium 136 mmol/L Low 139-145 18 Panel [address] [place] [address] [phone] Potassium 4.1 mmol/L N 3.5-5.0 Chloride 100 mmol/L Low 101-111 Co2 Carbon Dioxide 28 mmol/L N 22-32 Anion Gap 8 mmol/L N 2-11 Glucose 98 mg/dL N 70-100 Blood Urea Nitrogen 16 mg/dL N 6-24 Creatinine 0.70 mg/dL N 0.51-0.95 BUN/Creatinine Ratio 22.9 High 8-20 Calcium 8.7 mg/dL N 8.6-10.3 Egfr Non- 85.1 >60 Egfr 109.4 >60 19 Laboratory test 12/20/2017 [facility] Magnesium 2.1 mg/dL N 1.9-2.7 [address] [place] [address] [phone] Rheumatoid Factor < 10 IU/mL N <15 21 C Reactive Protein 5.90 mg/L High < 5.00 22 Vitamin B12 1362 pg/mL High 180-914 23 Erythrocyte Sed Rate 31 mm/Hr High 0-30 24 Urine Culture And 12/20/2017 [facility] Urine SEE RESULT [address] [place] [address] [phone] Laboratory test 12/20/2017 [facility] Lyme Disease Negative Negative [address] [place] [address] [phone] Anti Nuclear Antibody 0.2 U 27 Cyclic Citrullinated Pep Igg <15.6 U 28 Basic Metabolic Panel 04/10/2016 [facility] Sodium 134 mmol/L N 133-[address] [place] [address] [phone] Potassium 4.2 mmol/L N 3.5-5.0 Chloride 96 mmol/L Low 101-111 Co2 Carbon Dioxide 31 mmol/L N 22-32 Anion Gap 7 mmol/L N 2-11 Glucose 99 mg/dL N 70-100 Blood Urea Nitrogen 10 mg/dL N 6-24 Creatinine 0.62 mg/dL N 0.51-0.95 BUN/Creatinine Ratio 16.1 N 8-20 Calcium 8.9 mg/dL N 8.6-10.3 Egfr Non- 98.2 N >60 Egfr 126.3 N >60 29 Iron & Iron Binding 04/10/2016 [facility] Iron 58 g/dL N 50- [address] [place] [address] [phone] Unsaturated Iron Binding 271 g/dL N Total Iron Binding Capacity 329 g/dL N 250-450 % Iron Saturation 18 % N 15-55 Laboratory test 04/10/2016 [facility] Erythrocyte Sed 18 mm/Hr N 0-[address] [place] [address] [phone] Lyme Disease Serology Negative N Negative 30 CBC Auto Diff 04/10/2016 [facility] White Blood 3.9 10^3/uL N 3.5-10.[address] [place] [address] [phone] Red Blood Count 3.68 10^6/uL Low 4.0-5.4 [...] Cells % 0 N Laboratory test 04/10/2016 [facility] C Reactive 4.03 mg/L N < 5.00 [address] [place] [address] [phone] Ferritin 17.4 ng/mL N 11-307 1 SEE RESULT BELOW Name: SUSAN SAN : [address]: Izabel Rizvi MD Acct: [id number] Unit: [id number] AGE: 63 Location: [facility] Re08/20/18 SEX: F Status: REG REF SPEC: [id number] ELLEN: 08/20/18-[address]: Izabel Rizvi MD REQ: [id number] RECD: 08/20/18 STATUS: CAN _ SOURCE: STOOL SPDESC: ORDERED: C. diff PCR Procedure Result Reported Site CANCELLED C. Difficile toxin testing is not performed on formed stool specimens. Test of cure on positive patients is not recommended. Verbal to KRYSTINA FELDMAN by [id number] at 1005 on 08/20/18. END OF REPORT DEPARTMENT OF PATHOLOGY, [address] [place] [address] Tr Gan M.D. Director [facility] # [id number] 2 [id number] 3 *Ascorbic acid is present which may interfere with detection of blood. 4 SEE RESULT BELOW Name: MENASUSAN : [address]: Rogelio Hendrix MD Acct: [id number] Unit: [id number] AGE: 63 Location: [facility] Re05/02/18 SEX: F Status: REG REF SPEC: [id number] ELLEN: 05/02/[address]: Raphael Hendrix MD REQ: [id number] RECD: 05/02/18 STATUS: COMP _ SOURCE: URINE SPDESC: ORDERED: Urine Culture COMMENTS: [id number] Urine Source: Random Procedure Result Reported Site Urine Culture Final 05/03/18- 1634 ML No growth of clinically significant organisms * ML - Main Lab . END OF REPORT DEPARTMENT OF PATHOLOGY, [address] [place] [address] Tr Gan M.D. Director [facility] # [id number] 5 [id number] 6 SEE RESULT BELOW Name: MENASUSAN : [address]: Rogelio Hendrix MD Acct: [id number] Unit: [id number] AGE: 63 Location: [facility] Re03/21/18 SEX: F Status: REG REF SPEC: [id number] ELLEN: 03/21/18-[address] [facility] [address]: Raphael Hendrix MD REQ: [id number] RECD: 03/21/18 STATUS: COMP _ SOURCE: URINE SPDESC: ORDERED: Urine Culture COMMENTS: [id number] Urine Source: Random Procedure Result Reported Site Urine Culture Final 03/23/18- 0757 ML Organism 1 ESCHERICHIA COLI [place] Count >100,000 (Many) CFU/ML 1. ESCHERICHIA COLI [...] . END OF REPORT DEPARTMENT OF PATHOLOGY, [address] [place] [address] Tr Gan M.D. Director [facility] # [id number] 7 SEE RESULT BELOW Name: SUSAN SAN : [address]: Rogelio Hendrix MD Acct: [id number] Unit: [id number] AGE: 63 Location: LAB Re03/06/18 SEX: F Status: REG REF SPEC: [id number] ELLEN: 03/06/18-[address]: Raphael Hendrix MD REQ: [id number] RECD: 03/06/180177 STATUS: COMP _ SOURCE: URINE SPDESC: ORDERED: Urine Culture Procedure Result Reported Site Urine Culture Final 03/08/18- 846 ML Organism 1 ESCHERICHIA COLI [place] Count >100,000 (Many) CFU/ML 1. ESCHERICHIA COLI [...] . END OF REPORT DEPARTMENT OF PATHOLOGY, [address] [place] [address] Tr Gan M.D. Director [facility] # [id number] 8 *Ascorbic acid is present which may interfere with detection of blood. 9 ADDITIONAL INFORMATION This test was developed and its performance characteristics determined by [facility] in a manner consistent with CLIA requirements. This test has not been cleared or approved by the U.S. Food and Drug Administration. Test Performed by: [facility] [place] [address] 10 ADDITIONAL INFORMATION This test was developed and its performance characteristics determined by [facility] in a manner consistent with CLIA requirements. This test has not been cleared or approved by the U.S. Food and Drug Administration. Test Performed by: [facility] [address] 11 RESULT: No apparent monoclonal protein on serum electrophoresis. Test Performed by: [facility] [address] 12 No evidence of antibodies to B. burgdorferi detected. False negative results may occur in recently infected patients (<=2 weeks) due to low or undetectable antibody levels to B. burgdorferi. If recent exposure is suspected, a second sample should be collected and tested in 2-4 weeks. Test Performed by: [facility] [place] [address] 13 No bands detected 14 No bands detected 15 Specific serologic response to B. burgdorferi infection [...] >=30 days of symptoms. Test Performed by: [facility] - [address] [address] 16 ADDITIONAL INFORMATION This test was developed and its performance characteristics determined by [facility] in a manner consistent with CLIA requirements. This test has not been cleared or approved by the U.S. Food and Drug Administration. 17 ADDITIONAL INFORMATION This test was developed and its performance characteristics determined by [facility] in a manner consistent with CLIA requirements. This test has not been cleared or approved by the U.S. Food and Drug Administration. Test Performed by: [facility] - [address] [address] 18 [id number] 19 Because ethnic data is not always readily [...] 15-29 5 Kidney failure <15 (or dialysis) 20 [id number] 21 [id number] 22 Acute inflammation: >10.00 23 Normal Range 180 to 914 Indeterminate Range 145 to 180 Deficient Range <145 24 [id number] 25 SEE RESULT BELOW Name: SUSAN SAN : [address]: Denisse Vieyra MD Acct: [id number] Unit: [id number] AGE: 62 Location: [facility] Re12/20/17 SEX: F Status: REG REF SPEC: [id number] ELLEN: 12/20/17-[address] [facility] [address]: Denisse Vieyra MD REQ: [id number] RECD: 12/20/17160 STATUS: COMP [facility] DR: Jordan Michele MD _ SOURCE: URINE SPDESC: ORDERED: Urine Culture COMMENTS: [id number] QUERIES: Urine Source: Random Procedure Result Reported Site Urine Culture Final 12/22/17- 0812 ML Organism 1 ESCHERICHIA COLI [place] Count >100,000 (Many) CFU/ML 1. ESCHERICHIA COLI [...] . END OF REPORT DEPARTMENT OF PATHOLOGY, [address] [place] [address] Tr Gan M.D. Director [facility] # [id number] 26 No evidence of antibodies to B. burgdorferi detected. False negative results may occur in recently infected patients (<=2 weeks) due to low or undetectable antibody levels to B. burgdorferi. If recent exposure is suspected, a second sample should be collected and tested in 2-4 weeks. Test Performed by: [facility] [address] [place] [address] 27 REFERENCE VALUE <=1.0 (Negative) Test Performed by: [facility] [address] [place] [address] 28 REFERENCE VALUE <20.0 (Negative) Test Performed by: [address] [address] 29 Because ethnic data is not always readily [...] 15-29 5 Kidney failure <15 (or dialysis) 30 Serologic response to B. burgdorferi infection is not detected, but cannot rule out early infection during which low or undetectable antibody levels to B. burgdorferi may be present. If clinically indicated, a new serum specimen should be submitted in 7-14 days. Test Performed by: [facility] [address] [place] [address] Printing Press Machinist: Garfield Cheney II, M.D., Ph.D. 31 Acute inflammation: >10.00 Procedures Date Code Description Status 08/19/2018 13812 Inhalation [place] For Acute Airway Obstruction Completed W/Nebulizer/Inhaler 07/01/2018 580050834 Diabetic Retinal Eye Exam Completed 10/03/2017 23581529 Mammogram Completed 03/24/2015 60146 Short Leg Cast Completed 12/22/2014 16925 Inject/Drain Joint/Bursa Major W/O US Completed 12/04/2013 48689 ECHO Transthorasic Realtime 2D W Doppler & Color Flow Completed Hosp 11/14/2013 98748 EKG Tracing & Interpretation Completed 07/09/2013 [id number] Colonoscopy Completed 08/07/2012 94425 Polysomnography Sleep Staging 4+ Parameters W/Cpap Completed Encounters Type Date Location Provider Dx Diagnosis Office Visit 07/31/2018 [facility] Internal Izabel Rizvi MD G89.4 Chronic pain 1:40p Medicine - [address] F43.12 Post-traumatic stress disorder, chronic I10 Essential (primary) hypertension E34.9 Endocrine disorder, unspecified Office Visit 07/02/2018 3:00p [facility] Internal Izabel Rizvi MD G89.4 Chronic pain Medicine - [address] F43.12 Post-traumatic stress disorder, chronic I10 Essential (primary) hypertension Office Visit 06/19/2018 [facility] Internal Raphael Lopez 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 Keyshawn Hendrix M.D.,FACP disorders w [address] radiculopathy, 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 N39.0 Urinary tract infection, site not specified Office Visit 05/02/2018 2:20p [facility] Lelia Lopez G60.8 Other hereditary Keyshawn Hendrix M.D.,FACP and idiopathic [address] neuropathies N39.0 Urinary tract infection, site not specified M51.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, lumbar region I10 Essential (primary) hypertension Z23 Encounter for immunization Office Visit 03/21/2018 2:20p [facility] Lelia Lopez G60.8 Other hereditary Keyshawn Hendrix M.D.,FACP and idiopathic [address] neuropathies M51.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, lumbar region R30.0 Dysuria Office Visit 03/19/2018 11:00a Pulmonology And Maxine G47.33 Obstructive [facility] Anay[facility] apnea (adult) [facility] (pediatric) E66.01 Morbid (severe) obesity due to excess calories F41.9 Anxiety disorder, unspecified Office Visit 03/06/2018 1:00p Rheumatology Jordan Michele G89.4 Chronic pain 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 R20.8 Other disturbances of skin sensation M79.1 Myalgia Office Visit 02/25/2018 2:40p [facility] Internal Raphael Lopez G89.4 Chronic pain Medicine - [place] Lauro Hendrix.,FACP syndrome Rd G60.8 Other hereditary and idiopathic neuropathies M06.4 Inflammatory polyarthropathy Office Visit 01/02/2018 9:15a Pulmonology And Maxine G47.33 Obstructive sleep Sleep Services Of MD Anayeli apnea (adult) [facility] (pediatric) E66.09 Other obesity due to excess calories Office Visit 05/03/2017 Surgical Tee Schafer, L76.32 Postproc hematoma of 9:30a [facility] , FACS skin, subcu following other procedure Office Visit 05/08/2016 Rheumatology Jordan M06.4 Inflammatory 3:00p Services Of Ludin Michele M.D. polyarthropathy R20.8 Other disturbances of skin sensation R60.0 Localized edema M79.1 Myalgia Z23 Encounter for immunization Office Visit 03/13/2016 8:30a Pulmonology And Maxine G47.33 Obstructive sleep Sleep Services Of MD Anayeli apnea (adult) [facility] (pediatric) E66.01 Morbid (severe) obesity due to excess calories G47.10 Hypersomnia, unspecified Office Visit 01/27/2016 9:30a Pulmonology And Maxine G47.33 Obstructive sleep Sleep Services Of MD Anayeli apnea (adult) [facility] (pediatric) E66.01 Morbid (severe) obesity due to excess calories Office Visit 06/09/2015 2:40p [facility] [place] S92.354D Nondisp fx of 5th Services Of Latasha Hebert metatarsal bone, C.M.A. r ft, 7thD Office Visit 04/29/2015 3:50p [facility] [place] S92.354D Nondisp fx of 5th Services Of Latasha Hebert metatarsal bone, C.M.A. r ft, 7thD Office Visit 04/15/2015 3:30p [facility] [place] M66.871 Spontaneous Services Of Latasha Hebert rupture of other C.M.A. tendons, right ankle and foot Office Visit 03/24/2015 4:10p [facility] [place] 727.68 Ruptured Tendon Services Of Lat[facility] Hebert Foot & Ankle C.M.A. Other 825.25 FX Other Bones Metatarsal Bone(S) Closed 825.25 FX Other Bones Metatarsal Bone(S) Closed 727.68 Ruptured Tendon Foot & Ankle Other Office Visit 12/22/2014 2:00p Orthopedic Services Migue Carrion, 727.3 Bursitis Other Of Dejon Pagan 726.5 Enthesopathy Of Hip Region Office Visit 12/17/2013 8:00a [facility] Brittni Grey, 401.1 Hypertension Of [facility] M.D. Benign 786.05 Shortness Of Breath 786.02 Orthopnea 424.0 Mitral Valve Disorder 428.0 Congestive Heart Failure Unspecified Office Visit 11/14/2013 3:30p [facility] Brittni Grey, 428.0 Congestive Heart Of [facility] M.D. Failure Unspecified 401.1 Hypertension Benign 786.05 Shortness Of Breath 786.02 Orthopnea Office Visit 08/16/2012 Lai Cheatham 327.23 Obstructive Sleep 3:15p Disorder Sury Hoyt M.D. Apnea Adult & Pediatric Office Visit 06/21/2012 Lai Cheatham 327.23 Obstructive Sleep 10:59a Disorder Center Latasha Hoyt Apnea Adult & Pediatric Office Visit 10/24/2011 ENT Services Of Denny Escoto, 381.81 Eustachian Tube 1:15p C.M.A. AT [facility] Pagan Dysfunction Office Visit 05/16/2010 Neurosurgery Nas Weaver 726.5 Enthesopathy Of 3:00p Services Of [facility] Latasha Salguero Hip Region Plan of Treatment Future Appointment(s):11/13/2018 1:00 pm - Alcides Jerome MD at [facility]ology of [facility]08/23/2018 10:40 am - Izabel Rizvi MD at [facility] Internal Medicine - [id number]/07/2019 9:40 am - Izabel Rizvi MD at [facility] Internal Medicine - [address]/19/2018 10:45 am - Maxine Guadalupe MD at Pulmonology And Sleep Services Of [facility]08/22/2018 - Alcides Jerome MDE23.0 HypopituitarismNew Medication:Macimorelin -Follow up:3 monthInstructions:1. We will proceed with an (oral) metyrapone test to evaluate for secondary adrenal insufficiency. 2. We will proceed with an (oral) macimorelin test to evaluation for growth hormone deficiency. 3. Return in October for fasting blood tests. 4. Return in 3 months for a follow-up visit.M85.88 Other specified disorders of bone density and structure, othI50.9 Heart failure, nbzxwegngcnO79.12 Post-traumatic stress disorder, chronic
--- OUTSIDE RECORDS SUMMARY | 2018-08-29 11:27 | XMS REPORT | Continuity of Care Document ---
:1955 External Reference #:[id number] Author Name RudyteaAminta Care Team Providers Name Role Phone Izabel Rizvi M.D. Primary Care Physician Unavailable Payers Type Date Identification Numbers Payment Provider Subscriber Effective: 2012 Policy Number: [id number] [facility] Domenic San Expires: 2018 PayID: [id number] [address] [address] [place] [address] Effective: 2009 Policy Number: [id number] Medicare Susan San PayID: [id number] [address] [place] [address] Effective: 2018 Policy Number: [facility] Susan San [id number] PayID: [id number] [address] [place] [address] Advance Directives Type Date Description Status Comment [...] Onset: 01/27/2016 Obstructive sleep apnea syndrome Maxine Anayeli, MD Active Onset: 01/27/2016 Morbid obesity Maxine Guadalupe MD Active Onset: 03/13/2016 Hypersomnia with sleep apnea Maxine Guadalupe MD Active Onset: 02/25/2018 Adrenal hypofunction Raphael Hendrix, Active Latasha,FACP Onset: 03/21/2018 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 Latasha,FACP Onset: 11/14/2013 Congestive heart [...] Comments Sex Unknown Marital Status Lives With [facility] 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, 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 [...] Patient has never smoked Smoking Status Reviewed: 08/23/18 Patient has never smoked Exercise Type/Frequency Exercises [...] SIG Indications Ordering Provider Macimorelin 08/22 Active Oral 60mg 60mg Take 50mg E23.0 Solution by mouth MD Queenie within 30 seconds after fasting for at least 8 hours Metyrapone 08/22 Active Tablet 250mg 12tab 3g by E23.0 Mcgrath s mouth at MD Queenie midnight with a glass of milk or a small snack Prednisone 08/19 Active Tablets 10mg 84tab take 6 J20.9 s tablets by Rizvi mouth MD daily for 4 days, reduce by 1 tab every 4 days until finished Ipratropium 08/19 Active Solution 0.5-2.5(3 90ml one vial J20.9 [place]/Albuterol )mg/3ML via neb Rizvi, Sulfate every 4-6 [...] s every 6 D. Simeon, hours as Sheron.John,FACP needed for anxiety Turmeric Curcumin 03/06 Active [...] day Complex Medical Marijuana Active for pain and sleep rx'd by Dr. Denis Potassium Active Tablets ER 20Meq when Jander, Chloride Bettina ER /0000 taking MD Denisse torsemide Torsemide Active Tablets 5mg 30tab once daily s in the am MD Belkys Magnesium Active Tablets 550mg when Unknown Gluconate / taking torsemide Probiotic Active Capsules 1 by mouth Unknown every day Bacitracin Zinc Active Ointment 500Unit/G apply M twice a day x 10 days to help with nose bleeds prn Flonase Allergy Active Suspension 50mcg/Act spray 1 Unknown Relief spray in each nostril twice daily prn Mucinex Active Tablets ER 600mg twice a 12HR day as needed Afrin Nasal [place] Active Solution 0.05% 1 spray twice daily prn Leg Cramp Relief Active Tablets every 4 h prn Antacid Active Chewtabs 500mg prn Zofran Active Tablets 4mg 42tab take 1 by Raphael nahid Hendrix twice a Latasha,[facility] day as needed for nausea Systane Active Solution 0.4-0.3% apply twice daily as needed for dry eyes Spironolactone Active Tablets 25mg 30tab take 1 s tablet by jackelin Rizvi MD daily Cheratussin ac Active Solution 100-10mg/ 5-10ml 5ML every 6 hours as needed cough. Lyrica 06/19 Hx Capsules 50mg 60cap 1 by mouth Raphael /2017 Lore Martinez M.D.,[facility] 07/31 Oseltamivir 05/02 Hx Capsules 75mg 10cap 1 po bid Raphael Lore Joel M.D.,[facility] 05/07 Macrobid 03/22 Hx Capsules 100mg 14cap 1 by mouth s twice a D. Simeon, - day M.D.,[facility] 03/29 Macrobid 03/07 Hx Capsules 100mg 14cap 1 by mouth s twice a D. Simeon, - day M.D.,[facility] 03/14 Lasix 03/06 Hx Tablets 20mg 1 by mouth every day Lorazepam 01/26 Hx Tablets 0.5mg 45tab 1-2 tabs G47.33 Maxine /2016 s tab by Anayeli mouth every night as needed Migraine Formula 01/22 Hx Tablets 250-250-6 prn 5mg Clonazepam 01/22 Hx Tablets 0.5mg 30tab 1 by mouth s twice a D. Simeon, - day as M.DAnn,[facility] 07/27 needed for vertigo/an xiety Blanche Leg Cramp 01/22 Hx as directed Systane 01/22 Hx Solution 0.4-0.3% one drop in each eye twice daily plus as needed every 2 hours Tylenol PM Extra 01/22 Hx Tablets 500-25mg 1 tab by Unknown mouth every 6 hours as needed Mucinex D 01/22 Hx Tablets ER 60-600mg 1 tab by 12HR mouth 2x day as needed Rigby 04/15 Hx Tablets 5-325mg 30tab 1-2 by s mouth Anup, - every 4 to M.D. 01/22 6 hours as needed Nitroglycerin 11/14 Hx Patches 0.4mg/HR 30uni 1 patch to 786.02 Brittni 24HR ts chest wall Matilda, - in the M.D. 03/23 evenings, remove after 12 hours. Prednisone 00 Hx Tablets 6mg 30tab as Unknown / s directed Atenolol 00 Hx Tablets 12.5 30tab 1 po qd / s - 01/22 Hydromorphone HCL Hx Tablets 1.930 60tab one to two Unknown / s 4 times a day as needed for pain Torsemide 00 Hx Tablets 10mg 30tab 1 po qod / s - 03/06 Magnesium-Oxide 00/00 Hx Tablets 750-1000m 30tab 1 po qd [...] po qhs Unknown /0000 - 01/22 Magnesium / Hx Tablets 500mg 2 po qd Unknown Gluconate /0000 with - Torsemide 02/25 Systane / Hx prn Unknown /0000 - 01/22 Lorazepam 00/ Hx prn Unknown /0000 - 01/22 Tizanidine HCL Hx 2mg prn Unknown /0000 - 01/22 Clonidine HCL 0000 Hx Tablets 1mg 28tab 1po qhs Unknown /0000 s Hydrochlorothiazi Hx Tablets 25mg 1 by mouth Unknown de /0000 every day - 01/22 Prednisone 00/00 Hx Tablets 5mg 1 by mouth Unknown /0000 every day - 02/25 Hydrocodone-Aceta Hx Tablets 5-325mg kylie Ottophen /0000 MD Tee - 02/25 Meloxicam Hx 7.5mg Patient Unknown /0000 will be - taking 03/21 12 days Clonidine HCL 0000 Hx Tablets 0.1mg 1 by mouth Unknown /0000 qid as - needed 07/02 Nortriptyline HCL 00 Hx Capsules 10mg take 2 Unknown /0000 capsules - by mouth 06/19 at bedtime rx'd by Dr. Denis Gabapentin Hx Capsules 300mg 1 by mouth Unknown /0000 three - times a 05/[address] Denis Medications Administered in Office Medication Date Status Form Strength Qnty SIG Indications Ordering Provider Depomedrol Administered Injection Migue Carrion, 80MG 015 M.D. Immunizations CPT Code Status Date Vaccine Reaction Lot # [id number] Given 05/02/2018 Influenza Virus Vaccine, [id number] Quadrivalent, Split, Preservative Free 02106 Given 05/08/2016 Influ Virus Vaccine, No reaction noted [id number] Quadrivalent, Split Virus, Im Fluzone not PF Vital Signs Date Vital Result Comment 08/23/2018 10:06am Height 59 inches 4'11" Weight 221.50 lb Heart Rate 81 /min BP Systolic 142 mmHg BP Diastolic 91 mmHg Body Temperature 98.4 F O2 % BldC Oximetry 97 % BMI (Body Mass Index) 44.7 kg/m2 08/22/2018 2:44pm Height 59 inches 4'11" Weight [...] Result H/L Range Note Laboratory test 08/20/2018 [facility] C Difficile PCR SEE RESULT [address] [place] [address] [phone] Laboratory test 07/01/2018 [facility] Erythrocyte Sed 24 mm/Hr N 0-[address] [place] [address] [phone] C Reactive Protein 6.95 mg/L N <8.01 Urinalysis Profile 05/02/2018 [facility] Urine Color Yellow [address] [place] [address] [phone] Urine Appearance Clear Urine Specific [place] 1.010 N 1.010-1.030 Urine pH 5.0 N [...] Present Abnormal Absent Urine Culture And 05/02/2018 [facility] Urine Culture SEE RESULT [address] [place] [address] [phone] Urine Culture And 03/21/2018 [facility] Urine Culture SEE RESULT 5, [address] [place] [address] [phone] Ua Routine 03/21/2018 [facility] Ua Specific 1.015 [place] Ua PH 5 Ua Color dark yellow Ua Appera cloudy Ua WBC ++ Ua Protein trace Ua Glucose normal Ua Ketones neg Ua Bilirubin neg Ua Urobilinogen normal Ua Nitrite pos Ua Occult Blood trace Urine Culture And 03/06/2018 [facility] Urine Culture SEE RESULT [address] [place] [address] [phone] Urinalysis Profile 03/06/2018 [facility] Urine Color Yellow [address] [place] [address] [phone] Urine Appearance Cloudy Urine Specific [place] 1.013 N 1.010-1.030 Urine pH 5.0 N [...] Epithelial Cell Present Abnormal Absent Laboratory 03/06/2018 [facility] Vitamin B1 175 nmol/L 70- 180 9 test finding [address] (Whole Blood) [place] [address] [phone] Laboratory 03/06/2018 [facility] Erythrocyte 80 mm/Hr High 0- [address] [place] [address] [phone] Hepatitis 03/06/2018 [facility] Hepatitis B Nonreactive Nonreactive Acute Panel [address] [place] [address] Antigen [phone] Hepatitis B Core IgM Nonreactive Nonreactive Hepatitis C Antibody Nonreactive Nonreactive Hepatitis A AB IgM Nonreactive Nonreactive Laboratory test 03/04/2018 [facility] Methylmalonic 0.17 <= 0.[address] Acid Mma nmol/[place] [address] [phone] Protein 03/04/2018 [facility] Total 6.9 g/dL 6.3 - Electrophoresis [address] Protein(Pep) 7.9 [place] [address] [phone] Albumin 3.4 g/dL 3.4-4.7 Alpha-1 Globulin 0.4 g/dL Abnormal 0.1-0.3 Alpha-2 Globulin 1.2 g/dL Abnormal 0.6-1.0 Beta Globulin 1.1 g/dL 0.7-1.2 Gamma Globulin 0.8 g/dL 0.6-1.6 Albumin/Globulin Ratio 0.98 Impression See Comment 11 Laboratory test 03/04/2018 [facility] TSH (Thyroid 0.70 mcIU/mL N 0.34-5.[address] Stim Horm) [place] [address] [phone] Lyme Disease Serology Negative Negative 12 Lyme Western 03/04/2018 [facility] Lyme Disease Negative Negative Blot [address] [place] [address] [phone] Lyme Disease IgG Bands Present No bands detecte <SEE NOTE> kDa 13 Lyme Disease IgM Ab WB Negative Negative Lyme Disease IgM Bands Present No bands detecte <SEE NOTE> kDa 14 Lyme Disease Interpretation See Comment 15 Vitamin B6 03/04/2018 [facility] Pyridoxal 5-Phosphate 25 g/L 5-[address] [place] [address] [phone] Pyridoxic Acid 8 g/L 3-30 17 Laboratory test 03/04/2018 [facility] Vitamin D 36.0 ng/mL N 20-[address] Total 25(Oh) [place] [address] [phone] Uric Acid 2.7 mg/dL N 2.3-6.6 Basic Metabolic 12/20/2017 [facility] Sodium 136 mmol/L Low 139-[address] [place] [address] [phone] Potassium 4.1 mmol/L N 3.5-5.0 Chloride 100 mmol/L Low 101-111 Co2 Carbon Dioxide 28 mmol/L N 22-32 Anion Gap 8 mmol/L N 2-11 Glucose 98 mg/dL N 70-100 Blood Urea Nitrogen 16 mg/dL N 6-24 Creatinine 0.70 mg/dL N 0.51-0.95 BUN/Creatinine Ratio 22.9 High 8-20 Calcium 8.7 mg/dL N 8.6-10.3 Egfr Non- 85.1 >60 Egfr 109.4 >60 19 Laboratory test 12/20/2017 [facility] Magnesium 2.1 mg/dL N 1.9-2.[address] [place] [address] [phone] Rheumatoid Factor < 10 IU/mL N <15 21 C Reactive Protein 5.90 mg/L High < 5.00 22 Vitamin B12 1362 pg/mL High 180-914 23 Erythrocyte Sed Rate 31 mm/Hr High 0-30 24 Urine Culture And 12/20/2017 [facility] Urine SEE RESULT [address] [place] [address] [phone] Laboratory test 12/20/2017 [facility] Lyme Disease Negative Negative [address] [place] [address] [phone] Anti Nuclear Antibody 0.2 U 27 Cyclic Citrullinated Pep Igg <15.6 U 28 Basic Metabolic Panel 04/10/2016 [facility] Sodium 134 mmol/L N 133-[address] [place] [address] [phone] Potassium 4.2 mmol/L N 3.5-5.0 Chloride 96 [...] >60 29 Iron & Iron Binding 04/10/2016 [facility] Iron 58 g/dL N 50- [address] [place] [address] [phone] Unsaturated Iron Binding 271 g/dL N Total Iron Binding Capacity 329 g/dL N 250-450 % Iron Saturation 18 % N 15-55 Laboratory test 04/10/2016 [facility] Erythrocyte Sed 18 mm/Hr N 0-[address] [place] [address] [phone] Lyme Disease Serology Negative N Negative 30 CBC Auto Diff 04/10/2016 [facility] White Blood 3.9 10^3/uL N 3.5-10.[address] [place] [address] [phone] Red Blood Count 3.68 10^6/uL Low 4.0-5.4 [...] Cells % 0 N Laboratory test 04/10/2016 [facility] C Reactive 4.03 mg/L N < 5.[address] [place] [address] [phone] Ferritin 17.4 ng/mL N 11307 1 SEE RESULT BELOW Name: SUSAN SAN : [address]: Izabel Rizvi MD Acct: [id number] Unit: [id number] AGE: 63 Location: [facility] Re08/20/18 SEX: F Status: REG REF SPEC: [id number] ELLEN: 08/20/18-299 [facility] DR: Izabel Rizvi MD REQ: [id number] RECD: 08/20/18 STATUS: CAN _ SOURCE: STOOL SPDESC: ORDERED: Radha melton PCR Procedure Result Reported Site CANCELLED C. Difficile toxin testing is not performed on formed stool specimens. Test of cure on positive patients is not recommended. Verbal to KRYSTINA FELDMAN by [id number] at 1005 on 08/20/18. END OF REPORT DEPARTMENT OF PATHOLOGY, [address] [place] [address] Tr Gan M.D. Director [facility] # [id number] 2 [id number] 3 *Ascorbic acid is present which may interfere with detection of blood. 4 SEE RESULT BELOW Name: SUSAN SAN : [address]: Rogelio Hendrix MD Acct: [id number] Unit: [id number] AGE: 63 Location: [facility] Re05/02/18 SEX: F Status: REG REF SPEC: [id number] ELLEN: 05/02/[address]: Raphael Hendrix MD REQ: [id number] RECD: 05/02/18 STATUS: COMP _ SOURCE: URINE SPDESC: ORDERED: Urine Culture COMMENTS: [id number] Urine Source: Random Procedure Result Reported Site Urine Culture Final 05/03/18- 1634 ML No growth of clinically significant organisms * ML - Main Lab . END OF REPORT DEPARTMENT OF PATHOLOGY, [address] [place] [address] Tr Gan M.D. Director [facility] # [id number] 5 [id number] 6 SEE RESULT BELOW Name: SUSAN SAN : [address]: Rogelio Hendrix MD Acct: [id number] Unit: [id number] AGE: 63 Location: [facility] Re03/21/18 SEX: F Status: REG REF SPEC: [id number] ELLEN: 03/21/18-[address]: Raphael Hendrix MD REQ: [id number] RECD: 03/21/18 STATUS: COMP _ SOURCE: URINE SPDESC: ORDERED: Urine Culture COMMENTS: [id number] Urine Source: Random Procedure Result Reported Site Urine Culture Final 03/23/18- 0757 ML Organism 1 ESCHERICHIA COLI Thayer Count >100,000 (Many) CFU/ML 1. ESCHERICHIA COLI [...] . END OF REPORT DEPARTMENT OF PATHOLOGY, [address] [place] [address] Tr Gan M.D. Director [facility] # [id number] 7 SEE RESULT BELOW Name: SUSAN SAN : [address]: Rogelio Hendrix MD Acct: [id number] Unit: [id number] AGE: 63 Location: LAB Re03/06/18 SEX: F Status: REG REF SPEC: [id number] ELLEN: 03/06/18-1445 [facility] DR: Raphael Hendrix MD REQ: [id number] RECD: 03/06/18 STATUS: COMP _ SOURCE: URINE SPDESC: ORDERED: Urine Culture Procedure Result Reported Site Urine Culture Final 03/08/18- 0847 ML Organism 1 ESCHERICHIA COLI Thayer Count >100,000 (Many) CFU/ML 1. ESCHERICHIA COLI [...] any additional antibiotic reporting. * ML - [facility] . END OF REPORT DEPARTMENT OF PATHOLOGY, [address] [place] [address] Tr Gan M.D. Director [facility] # [id number] 8 *Ascorbic acid is present which may interfere with detection of blood. 9 ADDITIONAL INFORMATION This test was developed and its performance characteristics determined by [facility] in a manner consistent with CLIA requirements. This test has not been cleared or approved by the U.S. Food and Drug Administration. Test Performed by: [facility] [place] [address] 10 ADDITIONAL INFORMATION This test was developed and its performance characteristics determined by [facility] in a manner consistent with CLIA requirements. This test has not been cleared or approved by the U.S. Food and Drug Administration. Test Performed by: [facility] [place] [address] 11 RESULT: No apparent monoclonal protein on serum electrophoresis. Test Performed by: [facility] [place] [address] 12 No evidence of antibodies to B. burgdorferi detected. False negative results may occur in recently infected patients (<=2 weeks) due to low or undetectable antibody levels to B. burgdorferi. If recent exposure is suspected, a second sample should be collected and tested in 2-4 weeks. Test Performed by: [place] [address] 13 No bands detected 14 No bands [...] >=30 days of symptoms. Test Performed by: [facility] - [address] [address] 16 ADDITIONAL INFORMATION This test was developed and its performance characteristics determined by [facility] in a manner consistent with CLIA requirements. This test has not been cleared or approved by the U.S. Food and Drug Administration. 17 ADDITIONAL INFORMATION This test was developed and its performance characteristics determined by [facility] in a manner consistent with CLIA requirements. This test has not been cleared or approved by the U.S. Food and Drug Administration. Test Performed by: [address] [address] 18 [id number] 19 Because ethnic data is not always [...] 5 Kidney failure <15 (or dialysis) 20 [id number] 21 [id number] 22 Acute inflammation: >10.00 23 Normal Range 180 to 914 Indeterminate Range 145 to 180 Deficient Range <145 24 [id number] 25 SEE RESULT BELOW Name: SUSAN SAN : [address]: Denisse Vieyra MD Acct: [id number] Unit: [id number] AGE: 62 Location: [facility] Re12/20/17 SEX: F Status: REG REF SPEC: [id number] ELLEN: 12/20/17-1235 [facility] DR: Denisse Vieyra MD REQ: [id number] RECD: 12/20/17-1605 STATUS: ELPIDIO COOK DR: Jordan Michele MD _ SOURCE: URINE SPDESC: ORDERED: Urine Culture COMMENTS: [id number] QUERIES: Urine Source: Random Procedure Result Reported Site Urine Culture Final 12/22/17- 811 ML Organism 1 ESCHERICHIA COLI Thayer Count >100,000 (Many) CFU/ML 1. ESCHERICHIA COLI [...] . END OF REPORT DEPARTMENT OF PATHOLOGY, [address] [place] [address] Tr Gan M.D. Director [facility] # [id number] 26 No evidence of antibodies to B. burgdorferi detected. False negative results may occur in recently infected patients (<=2 weeks) due to low or undetectable antibody levels to B. burgdorferi. If recent exposure is suspected, a second sample should be collected and tested in 2-4 weeks. Test Performed by: [facility] [address] [place] [address] 27 REFERENCE VALUE <=1.0 (Negative) Test Performed by: [facility] - [address] [address] 28 REFERENCE VALUE <20.0 (Negative) Test Performed by: [address] [address] 29 Because ethnic data is not always [...] submitted in 7-14 days. Test Performed by: [facility] [address] [place] [address] Restaurant Crew: Garfield Cheney II, M.D., Ph.D. 31 Acute inflammation: >10.00 Procedures Date Code Description Status 08/19/2018 [address] Inhalation [place] For Acute Airway Obstruction Completed W/Nebulizer/Inhaler 07/01/2018 593690583 Diabetic Retinal Eye Exam Completed 10/03/2017 66388494 Mammogram Completed 03/24/2015 97984 Short Leg Cast Completed 12/22/2014 11655 Inject/Drain Joint/Bursa Major W/O US Completed 12/04/2013 59332 ECHO Transthorasic Realtime 2D W Doppler & Color Flow Completed Hosp 11/14/2013 04955 EKG Tracing & Interpretation Completed 07/09/2013 35691208 Colonoscopy Completed 08/07/2012 02220 Polysomnography Sleep Staging 4+ Parameters W/Cpap Completed Encounters Type Date Location Provider Dx Diagnosis Office Visit 07/31/2018 [facility] Lelia Rizvi MD G89.4 Chronic pain 1:40p Medicine - [address] F43.12 Post-traumatic stress disorder, chronic I10 Essential (primary) hypertension E34.9 Endocrine disorder, unspecified Office Visit 07/02/2018 3:00p [facility] Lelia Rizvi MD G89.4 Chronic pain Medicine - [address] F43.12 Post-traumatic stress disorder, chronic I10 Essential (primary) hypertension Office Visit 06/19/2018 [facility] Lelia Lopez 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 Keyshawn Hendrix M.D.,FACP disorders w [address] radiculopathy, 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 N39.0 Urinary tract infection, site not specified Office Visit 05/02/2018 2:20p [facility] Lelia Lopez G60.8 Other hereditary Keyshawn Hendrix M.D.,FACP and idiopathic [address] neuropathies N39.0 Urinary tract infection, site not specified M51.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, lumbar region I10 Essential (primary) hypertension Z23 Encounter for immunization Office Visit 03/21/2018 2:20p [facility] Lelia Lopez G60.8 Other hereditary Keyshawn Hendrix M.D.,FACP and idiopathic [address] neuropathies M51.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, lumbar region R30.0 Dysuria Office Visit 03/19/2018 11:00a Pulmonology And Maxine G47.33 Obstructive sleep Sleep Services Of MD Anayeli apnea (adult) [facility] (pediatric) E66.01 Morbid (severe) obesity due to excess calories F41.9 Anxiety disorder, unspecified Office Visit 03/06/2018 1:00p Rheumatology Jordan Michele G89.4 Chronic pain Services Of [facility] Latasha syndrome G60.8 Other hereditary and idiopathic neuropathies R20.8 Other disturbances of skin sensation M79.1 Myalgia Office Visit 02/25/2018 2:40p [facility] Internal Raphael Lopez G89.4 Chronic pain Medicine - [place] Latasha Hendrix,FACP syndrome Rd G60.8 Other hereditary and idiopathic neuropathies M06.4 Inflammatory polyarthropathy Office Visit 01/02/2018 9:15a Pulmonology And Maxine G47.33 Obstructive sleep Sleep Services Of MD Anayeli apnea (adult) [facility] (pediatric) E66.09 Other obesity due to excess calories Office Visit 05/03/2017 Surgical Tee Schafer, L76.32 Postproc hematoma of 9:30a [facility] , FACS skin, subcu following other procedure Office Visit 05/08/2016 Rheumatology Jordan M06.4 Inflammatory 3:00p Services Of Ludin Michele M.D. polyarthropathy R20.8 Other disturbances of skin sensation R60.0 Localized edema M79.1 Myalgia Z23 Encounter for immunization Office Visit 03/13/2016 8:30a Pulmonology And Maxine G47.33 Obstructive sleep Sleep Services Of MD Anayeli apnea (adult) [facility] (pediatric) E66.01 Morbid (severe) obesity due to excess calories G47.10 Hypersomnia, unspecified Office Visit 01/27/2016 9:30a Pulmonology And Maxine G47.33 Obstructive sleep Sleep Services Of MD Anayeli apnea (adult) [facility] (pediatric) E66.01 Morbid (severe) obesity due to excess calories Office Visit 06/09/2015 2:40p [facility] [place] S92.354D Nondisp fx of 5th Services Of Latasha Hebert metatarsal bone, C.M.A. r ft, 7thD Office Visit 04/29/2015 3:50p [facility] [place] Dang.354D Nondisp fx of 5th Services Of Latasha [...] Services Migue Carrion, 727.3 Bursitis Other Of Jojo.MElie Pagan 726.5 Enthesopathy Of Hip Region Office Visit 12/17/2013 8:00a [facility] Brittni Grey, 401.1 Hypertension Of [facility] M.D. Benign 786.05 Shortness Of Breath 786.02 Orthopnea 424.0 Mitral Valve Disorder 428.0 Congestive Heart Failure Unspecified Office Visit 11/14/2013 3:30p [facility] Brittni Grey, 428.0 Congestive Heart Of [facility] M.D. Failure Unspecified 401.1 Hypertension Benign 786.05 Shortness Of Breath 786.02 Orthopnea Office Visit 08/16/2012 Lai Cheatham 327.23 Obstructive Sleep 3:15p Disorder Sury Hoyt M.D. Apnea Adult & Pediatric Office Visit 06/21/2012 Lai Cheatham 327.23 Obstructive Sleep 10:59a Disorder Sury Hoyt M.D. Apnea Adult & Pediatric Office Visit 10/24/2011 ENT Services Of Denny Escoto, 381.81 Eustachian Tube 1:15p C.M.A. AT Misael Pagan Dysfunction Office Visit 05/16/2010 Neurosurgery Nas Weaver 726.5 [facility] Latasha Salguero Hip Region Plan of Treatment Future Appointment(s):09/20/2018 9:00 am - Izabel Rizvi MD at [facility] Internal Medicine - [address]04/24/2019 1:00 pm - Alcides Jerome MD at [facility]08/29/2018 9:40 am - Izabel Rizvi MD at [facility] Internal Medicine - [address]09/19/2018 10:45 am - Maxine Guadalupe MD at [facility]08/23/2018 - Izabel Rizvi MDJ20.9 Acute bronchitis, unspecifiedFollow up:4 [id number] Acute bronchospasm
[2018-08-29 11:44] LABS: ABS Basophils 0 10^3/ul (0-0.2); ABS Eosinophils 0 10^3/ul (0-0.6); ABS Lymphocytes 1.3 10^3/ul (1.0-4.8); ABS Monocytes 1.1 10^3/ul (0-0.8); ABS Nucleated RBC 0 10^3/ul; Eosinophil % 0.1 %; Hematocrit 40 % (35-47); Lymphocyte % 9.5 %; Mean Corpuscular HGB Conc 33 g/dl (31-36); Mean Corpuscular Hemoglobin 32 pg (27-31); Mean Corpuscular Volume 97 fL (80-97); Mean Platelet Volume 6.1 fL (7.4-10.4); Nucleated Red Blood Cells % 0; Platelet Count 358 10^3/ul (150-450); Red Blood Count 4.06 10^6/ul (4.00-5.40); Red Cell Distribution Width 13 % (10.5-15); White Blood Count 13.3 10^3/ul (3.5-10.8)
[2018-08-29] MEDS ORDERED: LORazepam INJ* 2 MG/ML 1 ML VIAL IV PUSH ONE (11:53)
[2018-08-29] MEDS ORDERED: LORazepam INJ* 2 MG/ML 1 ML VIAL ONE (11:54)
[2018-08-29 12:01] LABS: Activated Partial Thrombo Time 23.5 seconds (26.0-36.3)
[2018-08-29 12:02] LABS: Albumin/Globulin Ratio 1.4 (1-3); C Reactive Protein 8.75 mg/L (<8.01); Calcium 9.3 mg/dL (8.6-10.3); EGFR African American 106.1 (>60); EGFR Non-African American 87.7 (>60); Globulin 2.8 g/dL (2-4); Total Bilirubin 0.4 mg/dL (0.2-1.0); Total Protein 6.8 g/dL (6.4-8.9)
[2018-08-29 12:04] LABS: CKMB ng/mL 2.2 ng/mL (0.6-6.3)
[2018-08-29 14:30] VITALS: BP 154/86
== END 2018-08-29 15:02 | disposition home or self-care (01) ==
LOC: ED 10:55
DX: F41.9 Anxiety disorder, unspecified (principal); R06.00 Dyspnea, unspecified; E10.9 Type 1 diabetes mellitus without complications; E07.9 Disorder of thyroid, unspecified; I50.9 Heart failure, unspecified; I10 Essential (primary) hypertension; K21.9 Gastro-esophageal reflux disease without esophagitis
CPT/HCPCS: 36415; 71046; 80053; 82550; 82553; 82803; 83605; 83880; 84484; 85025; 85379; 85610; 85730; 86140; 87040; 93005; 96374; 96375; 99283; A9270-GY; J2060; J2930

== ENCOUNTER → 2019-02-05 10:40 | Day surgery (SDC) | payer MEDICARE ==
[~2019-02-05 10:40] MED LIST changes: +Acetaminophen TAB* 325 MG PO PRN; -Buffered Lidocaine 0.9% SYRIN* 5 ML/SYR SYRINGE INTRADERM ONE; +Buffered Lidocaine 1% SYRIN* 1 ML/SYRINGE INTRADERM ONE; +KETAMINE HCL* 50 MG/ML 10 ML VIAL ONE; +Ketorolac INJ* 30 MG/ML 1 ML VIAL IV PRN; +Lactated Ringers 1000 ML Bag* 1,000 ML IV SCH; +Lidocaine 2% PF * 5 ML VIAL ONE; +Midazolam* 1 MG/ML 2 ML VIAL (2 MG) ONE; +Naloxone* 0.4 MG/ML 1 ML VIAL IV PRN; +Propofol* 10 MG/ML 20 ML BTL ONE; +Propofol* 500 MG/50 ML BTL ONE
[2019-02-05 15:42] VITALS: BP 136/82
--- NOTE | 2019-02-09 23:54 | PRO ---
CC: Dr. Izabel Rizvi * DATE OF PROCEDURE: 02/05/19 [facility] PROCEDURE: EGD with biopsy. REFERRING PROVIDER: Izabel Rizvi MD INDICATION: The patient has chronic GERD, solid food . She was offered PPI therapy at the time of clinic visit in July 2018. She has a history of Palmer's esophagus so we discussed the typical as indicated. The patient has since started ranitidine daily. She feels that the vomiting, GERD, and dysphagia symptoms are better although not fully resolved. MEDICATIONS: Given by Anesthesia. DESCRIPTION OF PROCEDURE: Full disclosure of risks was reviewed with the patient as detailed on the consent form. The patient was placed in the left lateral decubitus position and monitored with continuous pulse oximetry, capnography, interval blood pressure monitoring, and direct observation. A bite block was placed between the patient's teeth. An adult gastroscope was then inserted into the patient's mouth and advanced down the esophagus, into the stomach, and into the distal duodenum. Findings and interventions are described below. FINDINGS: Esophagus was a tubular structure with possible slight narrowing in the proximal esophagus. It appeared that there might be an area of extrinsic compression causing this narrowing. No other rings or strictures noted. Z- line was mildly irregular and occurred at 35 cm. GE junction occurred at 36 cm. The scope was easily advanced into the stomach. Stomach was examined in the forward and retroflex views. In the proximal gastric body, there was 1 small erosion with a small amount of adherent blood. In the gastric antrum, there were also several very small erosions. No ulcers appreciated. Biopsies obtained from gastric mucosa and sent for histologic evaluation and to rule out H. pylori. Scope was advanced into distal duodenum to at least the third portion. Duodenum was normal in appearance. Biopsies were obtained given her nausea and vomiting complaints. Scope was then withdrawn back into the esophagus where biopsies were obtained from the irregular Z-line. Scope was then withdrawn from the patient. The patient tolerated the procedure well and was recovered in the GI recovery area. IMPRESSION: 1. Complete upper endoscopy to the distal duodenum. 2. Mild narrowing in upper esophagus, which appears to be extrinsic compression. Scope was easily able to advance past this area. 3. Mildly irregular Z-line, biopsied given history of intestinal metaplasia. 4. A few small gastric erosions. FOLLOWUP: 1. Await pathology. 2. We will likely start PPI therapy given the erosions seen in the stomach. 3. Recommend barium esophagram. If there is felt to be some proximal esophageal narrowing, then I would plan for a CT chest to evaluate for causes of extrinsic compression. 4. We will schedule followup in GI clinic. Thank you very much for this referral. [id number]/[facility] #: [id number] [facility]ITALJenn[facility]
--- NOTE | 2019-02-10 03:34 | PRO ---
CC: Dr. Izabel Rizvi * DATE OF PROCEDURE: 02/05/19 - [facility] PROCEDURE: Colonoscopy with cold snare and jumbo biopsy polypectomy. REFERRING PROVIDER: Izabel Rizvi MD MEDICATIONS: Given by Anesthesia. INDICATION: Due for repeat colonoscopy for polyp surveillance. Colonoscopy in 2012 was notable for 2 small colon polyps. One of the polyp was tubular adenoma and the other polyp was hyperplastic polyp. The patient denies any lower GI symptoms. DESCRIPTION OF PROCEDURE: Full disclosure of risks was reviewed with the patient as detailed on the consent form. The patient was placed in the left lateral decubitus position and monitored with continuous pulse oximetry, capnography, interval blood pressure monitoring, and direct observation. After anorectal examination was performed, the adult colonoscope was inserted into the rectum until we advanced forward to the level of the cecum. Complete views of the cecum were obtained, including the medial wall between the IC valve and the appendiceal orifice. Photodocumentation of these landmarks were seen. Careful inspection was made as the colonoscope was withdrawn. Retroflexion was performed in the rectum. Findings and interventions are described below. FINDINGS: Anorectal exam was notable for small external hemorrhoids. Scope was inserted into the rectum and slowly advanced forward. In the cecum, there was a polyp measuring 3 mm. There was also a cecal polyp measuring 6 mm removed with cold snare. There is pandiverticulosis. In the hepatic flexure, there was a polyp of 4 mm which was removed with jumbo biopsy forceps. In the sigmoid colon, there was a 3-mm polyp removed with jumbo biopsy forceps. In the rectum, there were 2 polyps measuring 3 mm each. These polyps were removed with jumbo biopsy forceps. Retroflexion in the rectum revealed internal hemorrhoids. Scope was then withdrawn from the patient. The patient tolerated the procedure well and was recovered in the GI recovery area. IMPRESSION: 1. Complete colonoscopy to cecum. 2. Multiple small polyps removed as above. 3. Pandiverticulosis, left greater than right. 4. Internal hemorrhoids and small external hemorrhoids. FOLLOWUP: 1. Await pathology. 2. Anticipate repeat colonoscopy in 3 to 5 years depending on the path. 3. Recommend high-fiber diet and avoidance for constipation or straining. 4. Recommend conservative management for internal hemorrhoids. The patient to contact clinic if she develops symptoms from the hemorrhoids. Thank you very much for this referral. [id number]/[facility] #: [id number] [facility]
== END | disposition home or self-care (01) ==
LOC: OR 10:40
PROVIDERS: ATTEND Internal Medicine Gastroenterology
DX: R13.10 Dysphagia, unspecified (principal); K21.9 Gastro-esophageal reflux disease without esophagitis; Z80.0 Family history of malignant neoplasm of digestive organs; K29.50 Unspecified chronic gastritis without bleeding; Z09 Encounter for follow-up examination after completed treatment for conditions other than malignant neoplasm; Z86.010 Personal history of colon polyps; D12.0 Benign neoplasm of cecum; K62.1 Rectal polyp; K63.5 Polyp of colon; K57.30 Diverticulosis of large intestine without perforation or abscess without bleeding; K64.8 Other hemorrhoids; I50.9 Heart failure, unspecified; E11.9 Type 2 diabetes mellitus without complications; F41.8 Other specified anxiety disorders; G47.33 Obstructive sleep apnea (adult) (pediatric)
CPT/HCPCS: 87077; 88305; J2250; J2704